=== PATIENT | male | born 1935 | race Caucasian/White ===

== ENCOUNTER → 2018-04-28 17:35 | Outpatient (CLI) | payer MEDICARE, OTHER, SELFPAY ==
[2018-04-28 18:59] LABS: M R Staph aureus DNA By PCR Negative (Negative); Probe Check PASS; Specimen Processing Control PASS; Staph aureus DNA By PCR NEGATIVE (Negative)
== END ==
PROVIDERS: Family Provider Internal Medicine; PCP Internal Medicine; Referring Provider Podiatrist; Visit Provider Podiatrist
DX: L60.0 Ingrowing nail (principal)
CPT/HCPCS: 87070; 87075; 87077; 87186; 87205; 87640

== ENCOUNTER → 2018-07-02 13:01 | Outpatient (CLI) | payer MEDICARE, OTHER, SELFPAY ==
--- NOTE | 2018-07-02 13:06 | RAD_ITS ---
STUDY: X-RAY - RIGHT HAND REASON FOR EXAM: Male, 83 years old. Pain TECHNIQUE: 3 view(s) of the hand. COMPARISON: None. FINDINGS: There is joint space narrowing of the radiocarpal articulation consistent with degenerative arthrosis. Normal distal radioulnar joint. There is diffuse demineralization of the carpal bones. Normal carpal articulations There is degenerative arthrosis of the carpometacarpal (CMC) articulation of the thumb. Normal second through fifth carpometacarpal joints. Normal metacarpi. Normal metacarpophalangeal joint of the thumb. Normal interphalangeal joint of the thumb. Normal proximal and distal phalanges of the thumb. Normal metacarpophalangeal joints of the second through fifth fingers. Normal proximal and distal interphalangeal joints of the second through fifth fingers. Normal phalanges of the second through fifth fingers. There is soft tissue swelling of the third, fourth and fifth digits. RAD/Hand Min 3 Views IMPRESSION: There are degenerative changes as described. There is NO acute fracture or malalignment. There is soft tissue swelling of the third, fourth and fifth digits. Electronically Signed: Donald Diaz MD at 7:50 EST , Service support ,
== END ==
PROVIDERS: Family Provider Internal Medicine; PCP Internal Medicine; Referring Provider Nurse Practitioner; Visit Provider Nurse Practitioner
DX: M79.641 Pain in right hand (principal)
CPT/HCPCS: 73130

== ENCOUNTER → 2018-07-21 09:59 | Outpatient (CLI) | payer MEDICARE, OTHER, SELFPAY ==
[2018-07-21 10:17] LABS: Hematocrit 42.7 % (40-54); Mean Corp Hgb Conc 32.8 g/gl (32-36); Mean Corpuscular Volume 97.5 fL (80-94); Mean Platelet Vol. 10.8 fl (6.2-12.0); Platelet Count 293 K/mm3 (150-450); RBC Distribution Width CV 14.5 % (11.6-14.6); RBC Distribution Width SD 52.1 fl (35.1-43.9); Red Blood Count 4.38 M/mm3 (4.6-6.2); White Blood Count 12.2 K/mm3 (4.4-11.0)
[2018-07-21 10:18] LABS: Scan Indicated on CBC? Y/N NO
== END ==
PROVIDERS: Family Provider Internal Medicine; PCP Internal Medicine; Referring Provider Internal Medicine; Visit Provider Internal Medicine
DX: D72.829 Elevated white blood cell count, unspecified (principal)
CPT/HCPCS: 85027

== ENCOUNTER → 2018-07-26 09:50 | Outpatient (CLI) | payer MEDICARE, OTHER, SELFPAY ==
[2018-01-11 09:14] VITALS: BMI 35.3
== END ==
PROVIDERS: Family Provider Internal Medicine; PCP Internal Medicine; Referring Provider Internal Medicine; Visit Provider Internal Medicine
DX: R19.7 Diarrhea, unspecified (principal)
CPT/HCPCS: 82274; 83630; 87177; 87209; 87493; 87506

== ENCOUNTER 2018-12-25 14:00 | Outpatient (RCR) | payer MEDICARE, OTHER, SELFPAY ==
--- NOTE | 2018-12-16 14:33 | HP.PTEVAL ---
Patient's Visit Information ANDERSON JOHNSON SR is a 83 year old M referred to Physical Therapy by Elvia Loaiza DO with a diagnosis of B knee OA. Date of Evaluation: 12/16/18 Physical Therapist: Paul Reynoso PT, ATC - Visit Plan Frequency: 1x/Week Duration: 2 Weeks Plan: Issue HEP for gym routine consisting of B LE and core strengthening - Subjective Findings: Pt reports he is here for an exercise routine for his legs. Pt reports he walks everyday and has no problems with that, but notes when he gets home and has to negotiate stairs, he is too weak to get up them. Pt reports he can go down stairs much easier than he can ascend them. Pt reports no knee pain this date, but notes he does have pain on occassions. Pt reports he receives a cortisone injection into his knees every 2-3 months which are very effective in controlling his pain. No sleep difficulty secondary to pain. No tingling or numbness in LE's. 0/10 pain at rest, 6/10 when injection wears off - Pain B knees Pain Intensity (Out of 10): 0 Pain Intensity Range: 6 - Objective Neuro: B LE sensation is WNL to light touch. B achilles reflex= 2/3. Girth at joint line: 44.5 cm Bilaterally. ROM: B knees 0-7-110 degrees. MMT: R knee is 4/5 throughout, L knee is 4+/5 throughout. Stairs: Pt can negotiate stairs with no problems with the use of handrails. Pt is Unable to negotiate stairs without handrails - Goals Goal 1:: I with HEP 1-2 visits Goal Time Frame: 2 Weeks - Rehabilitation Potential Physical Therapy Diagnosis: Pt has difficulty with stair negotiation due to B LE weakness Rehabilitation Potential: Good - Anticipated Interventions Patient/Client Instruction: Educate patient on: Condition, Plan of Care For the Purpose of:: To improve self management Thank you for the opportunity to evaluate your patient. For Medicare and Medicare HMO plans, please review the plan of care and approve it. It will need to be FAXED BACK to us at [phone] for Medicare purposes. For Medicare only, by signing this I certify the plan of care. Please let me know if there are questions or concerns regarding this plan of care. Physician Signature: Date:
--- NOTE | 2018-12-25 15:34 | HP.PTDCSUM ---
HP - PT D/C Summary It has been my pleasure to treat ANDERSON JOHNSON SR under orders from Elvia Loaiza DO, for the diagnosis of B knee OA for a total of 3 visit(s). Discharge Date: Please see the following information for a summary of their discharge status. - Subjective Subjective: NO pain this date. Pt ready for I program - Pain B knees Pain Intensity (Out of 10): 0 - Overall Improvement % Improvement: 100 - Objective Objective/Function: Pt is now I with gym routine at this time. Rx goals achieved - Goals Goal 1:: I with HEP 1-2 visits Goal Progress: Goal Met - Plan Plan: Discharge - D/C Information If there are questions or concerns regarding this patient's physical therapy, please feel free to call me at [phone]. Thank you for the referral of this patient. Sincerely, Paul Reynoso, PT, ATC
== END 2018-12-25 19:00 | disposition home or self-care (01) ==
LOC: PT 14:00
PROVIDERS: Family Provider Internal Medicine; PCP Internal Medicine; Referring Provider Orthopaedic Surgery; Visit Provider Orthopaedic Surgery
DX: M17.0 Bilateral primary osteoarthritis of knee (principal)
CPT/HCPCS: 97110; 97161

== ENCOUNTER 2020-03-01 12:45 | Emergency (ER) | payer MEDICARE, OTHER, SELFPAY ==
[2019-12-28 12:03] VITALS: BMI 36.6
[2020-03-01 12:46] VITALS: BP 152/86; PULSE 84; RESP 15; TEMP 36.7; O2SAT 94; BMI 35.2
--- NOTE | 2020-03-01 13:06 | VDLE_ITS ---
Reason For Study: pain Procedure LEFT Exam performed portable in ED. GSV is normal. The exam was abbreviated due to the COVID 19 CFV is compressible, spontaneous, phasic, protocol. competent, and demonstrates normal The exam was diagnostic. augmentation. A preliminary report was called and/or faxed FV is compressible, spontaneous, phasic, to Dr. Clemens. competent and demonstrates normal augmentation. POP V is compressible, spontaneous, phasic, competent and demonstrates normal augmentation. T/P Trunk is compressible. PTV is compressible. LT PerV is compressible. Interpretation Summary Deep veins of the left lower extremity are patent and compressible segmentally. There is no evidence of left lower extremity deep vein thrombosis. Valvular competence appears intact within the proximal deep venous system on the left . The left great saphenous vein appears patent and compressible segmentally. Ordering Physician: Damian Clemens Performed By: Jordy Eid RVT
--- NOTE | 2020-03-01 13:14 | ED.VISSUMM ---
- ER Visit Summary Date of Service: 03/01/20 Chief Complaint: Knee pain History of Present Illness: The patient is a 85 M with left knee and left calf pain for several days. No injury or inciting factors. Worse with weightbearing. Sent for possible DVT. No history of DVT. No history of chest pain or shortness of breath with this. Denies weakness, numbness, or any other associated symptoms. He does have osteoarthritis and does get knee injections from time to time. Physical Examination: Afebrile and vital signs unremarkable. Unremarkable knee inspection. No deformity. Good range of motion. No laxity. He does have some left calf tenderness without edema or skin changes. Neurovascular intact distally. Test Results: Ultrasound pending. Emergency Department Course and Treatment: Patient declined pain medicine while awaiting ultrasound results. Ultrasound was negative. I suspect this is myofascial pain. He has no history which would cause me to believe this is a fracture. Nothing to suggest gout or septic joint. Patient will be discharged. Rest, ice, elevate. Pain meds. Follow-up with Ortho. Treatment Plan: As above Disposition: Discharge Impression: Left knee pain This note was generated with [employer] dictation software. It may contain incorrect words, spelling, and punctuation that were not noted in review of the chart prior to signing ED Disposition - Plan for ED Patient: Referrals: Teresa Castellano DO [Primary Care Provider] -
--- NOTE | 2020-03-01 13:39 | ED.DEP ---
ED Disposition - Plan for ED Patient: Instructions: ED Knee Pain [facility] Referrals: Elvia Loaiza DO [STAFF PHYSICIAN] -
[2020-03-01 13:58] VITALS: BP 142/87; PULSE 87; RESP 15; O2SAT 98
== END 2020-03-01 13:59 | disposition home or self-care (01) ==
LOC: ED 13:38
PROVIDERS: Emergency Provider Emergency Medicine; PCP Internal Medicine
DX: M25.562 Pain in left knee (principal); M17.12 Unilateral primary osteoarthritis, left knee; I10 Essential (primary) hypertension; E78.00 Pure hypercholesterolemia, unspecified
CPT/HCPCS: 93971; 99282

== ENCOUNTER → 2020-03-03 13:13 | Outpatient (CLI) | payer MEDICARE, OTHER, SELFPAY ==
[2020-03-01 12:46] VITALS: BMI 35.2
--- NOTE | 2020-03-03 13:20 | RAD_ITS ---
STUDY: X-RAY - LUMBAR SPINE REASON FOR EXAM: Male, 85 years old. PAIN X1 WEEK, NKI TECHNIQUE: 5 view(s) of the lumbar spine were obtained. COMPARISON: 2015 FINDINGS: Normal lumbar lordosis. There is no substantial scoliosis. There is a normal alignment of the vertebrae. There is multilevel endplate spondylosis of the lumbar vertebrae. There is multi-level degenerative disc disease with multi-level disc space narrowing. There is no demonstrated fracture. There is atherosclerotic calcification of the abdominal aorta without a demonstrated aneurysm. RAD/L/S Spine Min 4 Views IMPRESSION: Degenerative changes of the spine, as detailed above. Electronically Signed: Stephen Foreman MD at 17:27 EDT , Service support ,
--- NOTE | 2020-03-03 13:20 | RAD_ITS ---
STUDY: X-RAY - LEFT KNEE REASON FOR EXAM: Male, 85 years old. PAIN X1 WEEK, NKI TECHNIQUE: 4 view(s) of the knee. COMPARISON: None. FINDINGS: Normal visualized distal femur. Normal visualized proximal tibia and fibula. Normal proximal tibiofibular articulation. There is severe degenerative arthrosis of the medial femorotibial compartment with severe joint space narrowing. There is mild degenerative arthrosis of the lateral femorotibial compartment. There is mild degenerative arthrosis of the patellofemoral articulation. The soft tissue structures are unremarkable. RAD/Knee 4 or More Views IMPRESSION: Degenerative arthrosis. Electronically Signed: Stephen Foreman MD at 17:28 EDT , Service support ,
== END ==
PROVIDERS: PCP Internal Medicine; Referring Provider Physician Assistant; Visit Provider Physician Assistant
DX: M17.12 Unilateral primary osteoarthritis, left knee (principal)
CPT/HCPCS: 72110; 73564

== ENCOUNTER → 2020-05-05 | Outpatient (CLI) | payer MEDICARE, OTHER, SELFPAY ==
[2020-05-05 10:41] VITALS: BMI 35.2
--- NOTE | 2020-05-05 15:09 | VDLE_ITS ---
Reason For Study: swelling RIGHT GSV is normal. CFV is compressible, spontaneous, phasic, competent and demonstrates normal augmentation. FV is compressible, spontaneous, phasic, competent and demonstrates normal augmentation. POP V is compressible, spontaneous, phasic, competent and demonstrates normal augmentation. T/P Trunk is compressible. PTV is compressible. RT PerV is compressible. Procedure This is a venous duplex using B-mode, color flow and spectral Doppler. Exam performed in department. The exam was abbreviated due to the COVID 19 protocol. The exam was diagnostic. A preliminary report was called and/or faxed to Dr. Loaiza. Interpretation Summary There is no evidence of right lower extremity deep vein thrombosis. Right great saphenous vein appears patent and compressible segmentally. Abbreviated Covid-19 protocol Ordering Physician: Elvia Loaiza Performed By: Jordy Eid RVT
--- NOTE | 2020-05-05 15:09 | CT_ITS ---
STUDY: CT LOWER EXTREMITY WITHOUT CONTRAST: RIGHT REASON FOR EXAM: Male, 85 years old. FALL, INJURY RADIATION DOSAGE (If Supplied By Facility): CTDIvol = ( 8.57 ) mGy, DLP = ( 234.16 ) mGycm. Individualized dose optimization techniques were used for this CT.? TECHNIQUE: Transaxial imaging with sagittal and coronal reconstruction. COMPARISON: Right knee radiographs of 05/04/2020 FINDINGS: Acute fracture of the posterior tibial plateau occurring posterior to the intercondylar eminence and grazing the articular surface of the medial and lateral tibial plateaus causing a fracture fragment that is 2.3 cm left to right, 1.4 cm anterior to posterior and is 7 mm in height. There is minimal depression and posterior displacement. Hemarthrosis is present. Negative for fracture of the fibula, patella or femur. There is moderate degenerative arthrosis of the medial, lateral and patellofemoral compartments. Arterial calcifications. CT/Extremity Lower without Contra IMPRESSION: Acute fracture of the posterior tibial plateau occurring posterior to the intercondylar eminence and grazing the articular surface of the medial and lateral tibial plateaus with minimal depression and posterior displacement. Hemarthrosis present. Moderate degenerative arthrosis of the knee. Electronically Signed: Faith Mehta MD at 16:03 EDT , Service support ,
== END | disposition home or self-care (01) ==
LOC: CVS 15:09
PROVIDERS: PCP Internal Medicine; Referring Provider Orthopaedic Surgery; Visit Provider Orthopaedic Surgery
DX: M79.89 Other specified soft tissue disorders (principal); S89.91XA Unspecified injury of right lower leg, initial encounter
CPT/HCPCS: 73700; 93971

== ENCOUNTER 2020-06-23 10:55 | Inpatient (IN) | payer MEDICARE, OTHER, SELFPAY ==
[2020-05-05 10:41] VITALS: BMI 35.2
[2020-06-23] VITALS (10 sets, daily range): BP systolic 108–126; BP diastolic 79–92; PULSE 79–144; RESP 15–20; TEMP 36.4–36.8; O2SAT 84–96; BMI 35.2; BMI 33.1
[2020-06-23] MEDS: 0.9% Normal Saline 1,000 ML 125 ML IV ×3 (11:00→20:51)
--- NOTE | 2020-06-23 11:00 | RAD_ITS ---
STUDY: X-RAY CHEST REASON FOR EXAM: Male, 85 years old. Shortness of breath with productive cough. COVID positive. TECHNIQUE: Single frontal view of the chest. COMPARISON: None. FINDINGS: Low-volume inspiration with patchy opacities in both lungs, right slightly greater than left. Peripheral opacities are compatible with the given diagnosis of COVID. There is no demonstrated pleural abnormality. Cardiomegaly. Normal mediastinum and al. Normal visualized pulmonary arteries. Aortic tortuosity with calcification. Normal visualized thoracic spine. Normal visualized ribs, clavicles, and shoulders. There is no demonstrated abnormality of the visualized soft tissue structures of the upper abdomen. RAD/Chest 1 View (Portable) IMPRESSION: Cardiomegaly with patchy peripheral opacities in both lung odom compatible with the given diagnosis of COVID. No focal consolidation at this time. Electronically Signed: Russel Mckeon MD at 11:36 EST , Service support ,
[2020-06-23 11:19] LABS: Absolute Lymphocyte Count 1.58 X10^3/uL (0.83-4.51); Absolute Neutrophil Count 8.1 X10^3/uL (2.0-7.7); Basophil# 0.02 X10^3/uL; Basophil% 0.2 % (0-1); Eosinophil# 0.06 X10^3/uL; Eosinophils% 0.6 % (0-5); Hematocrit 41.1 % (40-54); Hemoglobin 13.1 g/dL (13.0-16.5); Lymphocyte # 1.58 X10^3/ul (4.0); Lymphocyte % 15.1 % (19-41); Mean Corp Hgb Conc 31.9 g/dL (32-36); Mean Corpuscular Hgb 26.6 pg (27.0-32.0); Mean Corpuscular Volume 83.5 fL (80-94); Mean Platelet Vol. 11.1 fl (6.2-12.0); Monocyte# 0.48 X10^3/uL; Monocyte% 4.6 % (0-10); NRBC Flagged by Analyzer 0 % (0-5); Neutrophil % 77.7 % (47-70); POSITIVE MORPHOLOGY YES; Platelet Count 353 K/mm3 (150-450); RBC Distribution Width CV 17.1 % (11.6-14.6); RBC Distribution Width SD 52.1 fl (35.1-43.9); Red Blood Count 4.92 M/mm3 (4.6-6.2); White Blood Count 10.4 K/mm3 (4.4-11.0)
[2020-06-23 11:22] LABS: Differential Indicated SCAN CRITERIA MET
--- NOTE | 2020-06-23 11:28 | EKG12_ITS ---
Test Reason : TACHY Blood Pressure : / mmHG Vent. Rate : 141 BPM Atrial Rate : 141 BPM P-R Int : 082 ms QRS Dur : 120 ms QT Int : 326 ms P-R-T Axes : 244 -48 055 degrees QTc Int : 499 ms Ectopic atrial tachycardia Left axis deviation Pulmonary disease pattern Left ventricular hypertrophy with QRS widening and repolarization abnormality Abnormal ECG Confirmed by GT STEWARD, MAO ([id number]), editorial assistant DORA VALDOVINOS ([id number]) on 06/24/2020 11:13:28 AM Referred By: MR Confirmed By:MAO DEL REAL MD
[2020-06-23 11:38] LABS: ALB/GLOB Ratio 0.5 RATIO (0.9-2.4); AST(SGOT) 32 U/L (15-37); Alanine Aminotransfer ALT/SGPT 24 U/L (16-61); Albumin, Serum 2.3 g/dL (3.2-5.0); Alkaline Phosphatase 76 U/L (45-117); Anion Gap 10 (5-15); BUN 37 mg/dL (7-18); BUN/Creat Ratio 36.6 RATIO (10-20); CPK Total, Creatine Kinase 37 U/L (39-308); Calcium,Total 8.6 mg/dL (8.5-10.1); Chloride 98 mmol/L (98-107); Creatinine, Serum 1.01 mg/dL (0.70-1.30); EST Glomerular Filtration Rate 75 mL/min (>60); Est Glom Filt Rate - Afr Amer 90 mL/min (>60); Estimated Creatinine Clearance 49.13 ml/min; Glucose 85 mg/dL (74-106); Potassium 2.8 mmol/L (3.5-5.1); Protein, Total 7.3 g/dL (6.4-8.2); Sodium Level 137 mmol/L (136-145)
[2020-06-23 11:41] LABS: Lactic Acid 1.7 mmol/L (0.4-1.9)
--- NOTE | 2020-06-23 11:45 | ED.DCSUM_ITS ---
History of Present Illness Chief Complaint: Shortness of Breath Narrative: Patient presenting for evaluation due to complications of coronavirus. Patient has a underlying history of a positive diagnosis, and has had symptoms for around 2 weeks. Patient states that he has generalized aches, fatigue, cough, shortness of breath, and loose stools. EMS was dispatched to the patient's house and he was noted to be hypoxic on room air. Patient denies that he has any underlying history of lung disease or any baseline oxygen requirement. Symptoms are moderate to severe and are not relieved by home remedies. Past Medical History - Allergies and Home Meds Allergies/Adverse Reactions: Allergies codeine Allergy (Verified 06/23/20 11:01) NEEDS FOLLOW-UP Primary Care Physician: Teresa Castellano DO [Primary Care Provider] - Prior records reviewed: Yes Past Medical History: - - Hypertension, BPH, arthritis Smoking Status: Former smoker Drugs: None Review of Systems All systems negative except as indicated General: Reports: Fever, Malaise Eyes: Denies: Visual changes - bilaterally, Diplopia ENT: Denies: Rhinorrhea, Sore throat Cardiovascular: Denies: Chest pain, Palpitations Respiratory: Reports: Dyspnea, Cough Gastrointestinal: Reports: Diarrhea Genitourinary: Denies: Dysuria, Hematuria, Frequency Musculoskeletal: Reports: Myalgias Skin: Denies: Rash, Wounds Neurological: Reports: Headache, Weakness Physical Exam Vital Signs/Narrative: Vital Signs Temp Pulse Resp BP Pulse Ox 06/23/20 11:26 139 H 18 108/79 94 06/23/20 11:02 86 19 H 120/83 H 95 06/23/20 10:56 97.5 F L 87 17 126/92 H 84 Inital Vital Signs reviewed: Yes General: Well nourished, Well developed, - - Mildly ill-appearing but otherwise not in physiologic distress Head: Normocephalic, Atraumatic Eyes: Perrl, EOMI ENT: Dry mucous membranes Neck: Supple, Nontender Cardiovascular: Regular rate, Regular rhythm Respiratory: No distress Abdomen: Soft, Nontender, Nondistended, Normal bowel sounds Extremities: Nontender, No edema Skin: Normal color, No rash Neurological: Alert, Oriented x3, Cranial nerves II-XII grossly intact, Normal Strength, Normal Sensation Psychological: Normal affect, Normal Mood Diagnostic/Tx/Re-eval Clinical Impression(s) from Imaging Studies Chest X-Ray 06/23/20 11:00 IMPRESSION: Cardiomegaly with patchy peripheral opacities in both lung odom compatible with the given diagnosis of COVID. No focal consolidation at this time. Electronically Signed: Russel Mckeon MD at 11:36 EST , Service support , Laboratory Data 06/23/20 06/23/20 06/23/20 11:00 11:00 11:00 WBC 10.4 RBC 4.92 Hgb 13.1 Hct 41.1 MCV 83.5 MCH 26.6 L MCHC 31.9 L RDW Std Deviation 52.1 H RDW Coeff of Hazel 17.1 H Plt Count 353 MPV 11.1 Immature Gran % (Auto) 1.800 H Neut % (Auto) 77.7 H Lymph % (Auto) 15.1 L Mcculloch % (Auto) 4.6 Eos % (Auto) 0.6 Baso % (Auto) 0.2 Absolute Neuts (auto) 8.1 H Absolute Lymphs (auto) 1.58 Nucleated RBC % 0 Differential Comment SCANNED Sodium 137 Potassium 2.8 L Chloride 98 Carbon Dioxide 29.0 Anion Gap 10 BUN 37 H Creatinine 1.01 Estim Creat Clear Calc 49.13 Est GFR (MDRD) Af Amer 90 Est GFR (MDRD) Non-Af 75 BUN/Creatinine Ratio 36.6 H Glucose 85 Lactic Acid 1.7 Calcium 8.6 Total Bilirubin 0.50 AST 32 ALT 24 Alkaline Phosphatase 76 Total Creatine Kinase 37 L Troponin I < 0.015 Total Protein 7.3 Albumin 2.3 L Globulin 5.0 H Albumin/Globulin Ratio 0.5 L - EKG Initial EKG Interpretation: - - Sinus tachycardia with a rate of 141, left axis deviation is noted with pulmonary disease pattern, isoelectric ST segments, normal T waves, no evidence of acute ischemia. - Medical Decision Making Patient presented with complications of coronavirus. He was noted to be hypoxic on room air, he was placed on supplemental oxygen upon arrival. Septic work-up was obtained, upon the patient's initial arrival he was actually not tachycardic and had a heart rate in the 80s and 90s but during his stay in the emergency department he developed tachycardia. An EKG demonstrated what I feel to be a sinus tachycardia. He was started on gentle fluid resuscitation as clinically he appears dry but he has coronavirus and judicious fluids are typically recommended. Chest x-ray shows bilateral infiltrates consistent with the patient's known disease. CBC does not show significant derangements, chemistry shows hypokalemia, potassium was replaced. Lactic acid and troponin are negative. Patient was given Decadron. Patient will be admitted for further treatment. - Critical Care Time Critical care time (excluding procedures): 30-74 minutes ED Disposition - Plan for ED Patient: Disposition: Acute Care Hospital [facility] Diagnosis: COVID-19, Hypoxia, Hypokalemia, Tachycardia
[2020-06-23 11:48] LABS: Differential Comment SCANNED
[2020-06-23] MEDS: dexAMETHasone 4 MG/ML Vial 6 MG IV (12:03)
[2020-06-23] MEDS: Potassium Chloride 10mEq/100mL 10 MEQ/100 ML IV.SOLN. 100 MEQ IV BOLUS ×2 (12:04→13:39)
--- NOTE | 2020-06-23 12:04 | PCM.HP.STD ---
Problem List (1) COVID-19 Status: Acute (2) Hypoxia Status: Acute (3) Hypokalemia Status: Acute (4) Hypertension Status: Chronic Qualifiers: Hypertension type: essential hypertension Qualified Code(s): I10 - Essential (primary) hypertension History of Present Illness Date of Admission: 06/23/20 Chief Complaint: Shortness of breath ongoing for couple of days The patient is a 85 year old M with past medical history of hypertension, osteoarthritis who comes in with shortness of breath ongoing for couple of days. Patient was diagnosed with COVID-19 infection and has symptoms of generalized aches, fatigue, cough, shortness of breath ongoing for about 2 weeks. He has a pulse oximeter. He noted that his oxygen saturation the last 2 days was in the 70s. This morning his convinced him to come to the hospital. He denied any fever or chills. He come planes of cough productive of whitish sputum. Vitals in the ED showed temperature 97.5F, heart rate 70, blood pressure 126/92, RR 17, SPO2 was 84% on room air, improved to 95% on 2 L of oxygen. BC count 10.4, hemoglobin 13.1, platelet 353, sodium 137, potassium 2.8, chloride 98, bicarbonate 29, BUN 37, creatinine 1.01, lactic acid 1.7, magnesium 2.3, BNP pep is pending, D-dimer is pending. Admitting chest x-ray showed cardiomegaly with peripheral patchy opacity in both lung odom. 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 Allergies codeine Allergy (Verified 06/23/20 11:01) NEEDS FOLLOW-UP Home Medications: Ambulatory Orders Medication Instructions Recorded amlodipine 5 mg tablet 5 mg PO QDAY 07/25/17 atenolol 25 mg tablet 25 mg PO ONCE 07/25/17 saw palmetto 160 mg capsule 160 mg PO BID 07/25/17 coenzyme Q10 30 mg capsule 30 mg PO QDAY 01/11/18 pantoprazole 40 mg tablet,delayed 40 mg PO QDAY 01/11/18 release Cholecalciferol (Vitamin D3) 2,000 unit PO DAILY 02/05/19 [Vitamin D3] Hydrochlorothiazide [Hctz] 25 mg PO DAILY 02/05/19 Lisinopril [Zestril] 10 mg PO DAILY 02/05/19 Atorvastatin Calcium [Lipitor] 10 mg PO QHS 02/09/19 Ibuprofen [Advil] 200 mg PO PRN PRN 03/17/20 meloxicam 15 mg tablet 15 mg PO DAILY #30 tab 04/18/20 Surgical History: Surgical History (Last Reviewed 03/17/20 @ 14:30 by Per Nur) History of hernia surgery Z98.890, Z87.19 S/P hernia repair Z98.890, Z87.19 Surgical History: herniorrhaphy Psychiatric History: No pertinent psych hx Lives: Spouse/ Significant Other Smoking Status: Former smoker Tobacco Use: Non-smoker Alcohol: None Drugs: None - *Family History Maternal Family History: Family History (Last Reviewed 03/17/20 @ 14:30 by Per Nur) Mother Myocardial infarction Father Myocardial infarction CVA (cerebral vascular accident) Other Arthritis History Items: Heart Disease - [place] Paternal Family History: Family History (Last Reviewed 03/17/20 @ 14:30 by Per Nur) Mother Myocardial infarction Father Myocardial infarction CVA (cerebral vascular accident) Other Arthritis History Items: Heart Disease - [place], Stroke Review of Systems Constitutional: Reports: Anorexia, Weakness, Fatigue. Denies: Chills, Fever, Malaise, Weight Change Eyes: Denies: Blurred vision, Cataracts, Conjunctivae Inflammation, Pain, Redness, Vision Change HEENT: Denies: Difficulty Hearing, Difficulty Swallowing, Head Aches, Hearing Changes, Sinus Congestion, Sinus Drainage Cardiovascular: Denies: Chest Pain, Claudication, Orthopnea, Palpitations Respiratory: Reports: Cough, Shortness of Breath, Shortness of breath at rest, Shortness of breath upon exertion. Denies: Sputum production Gastrointestinal: Denies: Abdominal Pain, Hematemesis, Hematochezia, Nausea, Vomiting Genitourinary: Denies: Dysuria, Incontinence, Nocturia, Retention Musculoskeletal: Denies: Joint Pain, Joint Tenderness Skin: Denies: Rash, Wounds Neurological: Denies: Numbness, Tingling, Focal weakness Psychiatric: Denies: Anxiety, Depression, Homicidal Ideations, Suicidal Ideations Hematologic/ Lymphatic: Denies: Easy Bruising, Easy Bleeding VTE Information - Inpt Only VTE Present on Admission: No VTE Pharm Prophylaxis ordered?: Yes Patient Problems: Active and Suspected Problems (Last Reviewed 03/17/20 @ 14:30 by Per Nur) COVID-19 (Acute) Hypoxia (Acute) Hypokalemia (Acute) Tachycardia (Acute) - Physical Exam Vitals/I&O's: Vital Signs Temp Pulse Resp BP Pulse Ox 97.9 F 144 H 15 108/86 H 92 06/23/20 12:01 06/23/20 12:01 06/23/20 12:01 06/23/20 12:01 06/23/20 12:01 Oxygen Flow Rate (L/min) 2 Oxygen Delivery Method Nasal Cannula Weight: 98.8 kg Body Mass Index (BMI) 35.2 General: Alert, Oriented x3, Cooperative, No apparent distress HEENT: Atraumatic, PERRLA, EOMI, Normocephalic Oral: Moist Mucosa Neck: Supple, No JVD Lungs: Clear to auscultation, Diminished Cardiovascular: Regular rate, Regular Rhythm, Normal S1, Normal S2, No murmurs Abdomen: Bowel Sounds Present, Soft, Non Tender, Non-Distended, No Hepato-splenomegaly Extremities: No edema Skin: No rashes Musculoskeletal: No Tenderness to Palpation of Joints or Extremities Lymphatic: No Cervical, Supraclavicular, or Inguinal Adenopathy Neurological: Cranial nerves II-XII grossly intact, Motor Exam 5/5 strength throughout Psych/Mental Status: Normal Affect, Appropriate Laboratory Results 06/23/20 11:00: WBC 10.4, RBC 4.92, Hgb 13.1, Hct 41.1, MCV 83.5, MCH 26.6 L, MCHC 31.9 L, RDW Std Deviation 52.1 H, RDW Coeff of Hazel 17.1 H, Plt Count 353, MPV 11.1, Immature Gran % (Auto) 1.800 H, Neut % (Auto) 77.7 H, Lymph % (Auto) 15.1 L, Campbell % (Auto) 4.6, Eos % (Auto) 0.6, Baso % (Auto) 0.2, Absolute Neuts (auto) 8.1 H, Absolute Lymphs (auto) 1.58, Nucleated RBC % 0, Differential Comment SCANNED 06/23/20 11:00: Sodium 137, Potassium 2.8 L, Chloride 98, Carbon Dioxide 29.0, Anion Gap 10, BUN 37 H, Creatinine 1.01, Estim Creat Clear Calc 49.13, Est GFR (MDRD) Af Amer 90, Est GFR (MDRD) Non-Af 75, BUN/Creatinine Ratio 36.6 H, Glucose 85, Calcium 8.6, Total Bilirubin 0.50, AST 32, ALT 24, Alkaline Phosphatase 76, Total Creatine Kinase 37 L, Troponin I < 0.015, Total Protein 7.3, Albumin 2.3 L, Globulin 5.0 H, Albumin/Globulin Ratio 0.5 L 06/23/20 11:00: Lactic Acid 1.7 06/23/20 11:00: Procalcitonin Pending 06/23/20 11:00: Magnesium Pending Current Medications Sodium Chloride () 1,000 mls @ 125 mls/hr IV .Q8H IVELISSE Potassium Chloride () 10 meq in 100 mls @ 100 mls/hr IV BOLUS Q1H IVELISSE Stop: 06/23/20 13:59 Assessment/Plan All Active Problems (Last Reviewed 03/17/20 @ 14:30 by Per Nur) Easy bruising (Acute) Iron deficiency (Resolved) Rash (Acute) Ecchymosis (Acute) COVID-19 (Acute) Hypoxia (Acute) Hypokalemia (Acute) Tachycardia (Acute) Osteoarthrosis of knee (Acute) 1. Acute hypoxic respiratory insufficiency secondary to acute COVID-19 pneumonia Continue with breathing treatments, po steroids, encourage use of incentive spirometer. Wean off oxygen for SPO2 more than 94% 2. Acute COVID-19 pneumonia hypoxia Diagnosed 2 weeks ago, started having shortness of breath 2 days ago Started on IV dexamethasone, will continue on oral dexamethasone and IV remdesivir BN pep and D-dimer are pending ID and pulmonary consulted 3. Dehydration and tachycardia Admitting creatinine is 1.01, baseline creatinine 0.8 We will continue on IV fluids, repeat blood work in a.m. 4. Hypertension, home med list has not been verified We will continue on home meds when verified 5. Arthritis, not in pain at the moment 6. DVT prophylaxis with Lovenox subcu Inpatient E&M: [id number] Init Hosp L3
[2020-06-23 12:10] LABS: Magnesium 2.3 mg/dL (1.6-2.6)
[2020-06-23 13:39] LABS: D-Dimer Quantitative (DVT/PE) 1.12 FEU/ug/m (0.27-0.49)
--- NOTE | 2020-06-23 15:33 | NT.THERAPY_ITS ---
Nutrition Therapy Report - History Nutrition Services has been consulted to:: Manage nutrient details of diet order Current diet / nutrition support order:: regular - Anthropometric Measurements Height:: 5 ft 6.14 in Weight:: 93.5 kg Body Mass Index (BMI):: 33.1 - Relevant Labs Relevant Labs:: MCH 26.6 pg (27.0-32.0) L 06/23/20 11:00 MCHC 31.9 g/dL (32-36) L 06/23/20 11:00 RDW Std Deviation 52.1 fl (35.1-43.9) H 06/23/20 11:00 RDW Coeff of Hazel 17.1 % (11.6-14.6) H 06/23/20 11:00 Immature Gran % (Auto) 1.800 % (0.0-0.9) H 06/23/20 11:00 Neut % (Auto) 77.7 % (47-70) H 06/23/20 11:00 Lymph % (Auto) 15.1 % (19-41) L 06/23/20 11:00 Absolute Neuts (auto) 8.1 X10^3/uL (2.0-7.7) H 06/23/20 11:00 D-Dimer Quant (PE/DVT) 1.12 FEU/ug/m (0.27-0.49) H* 06/23/20 11:00 Potassium 2.8 mmol/L (3.5-5.1) L 06/23/20 11:00 BUN 37 mg/dL (7-18) H 06/23/20 11:00 BUN/Creatinine Ratio 36.6 RATIO (10-20) H 06/23/20 11:00 Total Creatine Kinase 37 U/L (39-308) L 06/23/20 11:00 Albumin 2.3 g/dL (3.2-5.0) L 06/23/20 11:00 Globulin 5.0 g/dL (2.2-4.2) H 06/23/20 11:00 Albumin/Globulin Ratio 0.5 RATIO (0.9-2.4) L 06/23/20 11:00 - Assessment Food / Nutrition-Related History:: Currently in isolation d/t COVID-19. Spoke w/ pt via room phone. Pt reports no appetite w/ very poor PO intake for 2 weeks [employer] d/t acute illness. Describes fair appetite/intake currently. UBW 225#, CBW 20 6.1#-18.9#/8.4% wt loss x 2 weeks is significant for acute malnutrition. States he has had intermittent diarrhea w/ acute illness. - Nutrition Diagnosis Problem / Etiology / Signs & Symptoms (PES):: Pt w/ severe, acute malnutrition r/t inadequate energy intake w/ COVID-19 infection as evidenced by estimated PO intake meeting less than 50% of pt's estimated needs for greater than 5 days, 18.9#/8.4% wt loss reported over past 2 weeks. Evidence of Malnutrition Exists:: Yes Severe PCM:: Acute Illness - Nutrition Intervention Nutrition Prescription:: 3530-4855 calories, 80-90 g protein/day - Food / Nutrient Delivery Interventions Summary of nutrition intervention:: Discussed ONS- agreeable to trying chocolate ensure at dinner this date. Dinner order taken for pt and called to kitchen. Nutrition support ordered as / adjusted to:: continue regular diet as tolerated, will add ensure w/ meals - MNT Monitoring Further MNT monitoring and evaluation required?: Yes MNT Follow-up in:: 3-5 days
[2020-06-23] MEDS: Atenolol 25 MG Tablet PO (15:46)
[2020-06-23] MEDS: guaiFENesin 600 MG Tablet PO (20:51)
[2020-06-23] MEDS: Enoxaparin 30 MG/0.3 ML Syringe SC (20:51)
[2020-06-24] VITALS (17 sets, daily range): BP systolic 119–157; BP diastolic 70–105; PULSE 62–102; RESP 18–20; TEMP 36.1–37.1; O2SAT 92–95
[2020-06-24] MEDS: 0.9% Saline Lock 10 ML Syringe IV ×2 (00:42→21:01)
[2020-06-24] MEDS: LORazepam 2 MG/ML Syringe 1 MG IV (00:42)
[2020-06-24] MEDS: 0.9% Normal Saline 1,000 ML 125 ML IV ×2 (04:06→12:00)
--- NOTE | 2020-06-24 07:04 | PN_ITS ---
Patient Problems: Active and Suspected Problems (Last Reviewed 03/17/20 @ 14:30 by Per Nur) Easy bruising (Acute) Ecchymosis (Acute) COVID-19 (Acute) Hypoxia (Acute) Hypokalemia (Acute) Tachycardia (Acute) Osteoarthrosis of knee (Acute) Reason for Visit: Follow-up on hypoxia/Acute COVID-19 pneumonia Subjective: Patient was seen and examined. He complains of feeling anxious. No acute events overnight. Objective: Physical exam: General: Alert, Oriented x3, Cooperative, No apparent distress HEENT: Atraumatic, PERRLA, EOMI, Normocephalic Oral: Moist Mucosa Neck: Supple, No JVD Lungs: Clear to auscultation, Diminished Cardiovascular: Regular rate, Regular Rhythm, Normal S1, Normal S2, No murmurs Abdomen: Bowel Sounds Present, Soft, Non Tender, Non-Distended, No Hepato- splenomegaly Extremities: No edema Skin: No rashes Musculoskeletal: No Tenderness to Palpation of Joints or Extremities Lymphatic: No Cervical, Supraclavicular, or Inguinal Adenopathy Neurological: Cranial nerves II-XII grossly intact, Motor Exam 5/5 strength throughout Psych/Mental Status: Normal Affect, Appropriate Vitals/I&O's: Vital Signs Temp Pulse Resp BP Pulse Ox 98.6 F 81 18 138/105 H 93 06/24/20 03:59 06/24/20 04:13 06/24/20 03:59 06/24/20 03:59 06/24/20 03:59 Oxygen Flow Rate (L/min) 2 Oxygen Delivery Method Nasal Cannula Weight: 96.3 kg Body Mass Index (BMI) 33.1 Intake and Output for Last 24 Hours 06/22/20 06/23/20 06/24/20 23:59 23:59 23:59 Intake Total 1920.25 / 2161.25 1246.25 / 1246.25 Balance 192.25 / 216.25 1246.25 / 1246.25 Microbiology Past 72 Hours 06/23/20 15:35 Mucosa - Nasopharyngeal Respiratory Panel (PCR) - Final Laboratory Results 06/23/20 11:00: WBC 10.4, RBC 4.92, Hgb 13.1, Hct 41.1, MCV 83.5, MCH 26.6 L, MCHC 31.9 L, RDW Std Deviation 52.1 H, RDW Coeff of Hazel 17.1 H, Plt Count 353, MPV 11.1, Immature Gran % (Auto) 1.800 H, Neut % (Auto) 77.7 H, Lymph % (Auto) 15.1 L, [place] % (Auto) 4.6, Eos % (Auto) 0.6, Baso % (Auto) 0.2, Absolute Neuts (auto) 8.1 H, Absolute Lymphs (auto) 1.58, Nucleated RBC % 0, Differential Comment SCANNED 06/23/20 11:00: Sodium 137, Potassium 2.8 L, Chloride 98, Carbon Dioxide 29.0, Anion Gap 10, BUN 37 H, Creatinine 1.01, Estim Creat Clear Calc 49.13, Est GFR (MDRD) Af Amer 90, Est GFR (MDRD) Non-Af 75, BUN/Creatinine Ratio 36.6 H, Glucose 85, Calcium 8.6, Total Bilirubin 0.50, AST 32, ALT 24, Alkaline Phosphatase 76, Total Creatine Kinase 37 L, Troponin I < 0.015, Total Protein 7.3, Albumin 2.3 L, Globulin 5.0 H, Albumin/Globulin Ratio 0.5 L 06/23/20 11:00: Lactic Acid 1.7 06/23/20 11:00: Procalcitonin Pending 06/23/20 11:00: Magnesium 2.3 06/23/20 11:00: D-Dimer Quant (PE/DVT) 1.12 H* 06/23/20 13:29: Lactic Acid Cancelled 06/23/20 13:29: B-Natriuretic Peptide Pending Current Medications Acetaminophen (Acetaminophen 325 Mg Tablet) 650 mg PO Q6H PRN PRN PRN Reason: Pain Score 1-10/Temp > 100.7 F Albuterol Sulfate (Albuterol 2.5 Mg/3 Ml Vial.Neb.) 2.5 mg INHALATION Q2H PRN PRN PRN Reason: SOB/Wheezing Atenolol (Atenolol 25 Mg Tablet) 25 mg PO DAILY COUNTS INCLUDE 234 BEDS AT THE [facility] Last Admin: 06/23/20 15:46 Dose: 25 mg Documented by: Dexamethasone (Dexamethasone 2 Mg Tablet) 6 mg PO DAILY COUNTS INCLUDE 234 BEDS AT THE [facility] Enoxaparin Sodium (Enoxaparin 30 Mg/0.3 Ml Syringe) 30 mg SC BID COUNTS INCLUDE 234 BEDS AT THE [facility] Last Admin: 06/23/20 20:51 Dose: 30 mg Documented by: Guaifenesin (Guaifenesin 600 Mg Tablet) 600 mg PO BID COUNTS INCLUDE 234 BEDS AT THE [facility] Last Admin: 06/23/20 20:51 Dose: 600 mg Documented by: Sodium Chloride () 1,000 mls @ 125 mls/hr IV .Q8H COUNTS INCLUDE 234 BEDS AT THE [facility] Last Admin: 06/24/20 04:06 Dose: 125 mls/hr Documented by: Sodium Chloride () 250 mls @ 15 mls/hr IV .[id number] PRN PRN Reason: Saline Flush Sodium Chloride () 250 mls @ 15 mls/hr IV .[id number] PRN PRN Reason: Additional IVPB Infusion Remdesivir 100 mg/ Sodium (Chloride) 250 mls @ 125 mls/hr IV DAILY COUNTS INCLUDE 234 BEDS AT THE [facility] Stop: 06/27/20 11:59 Ondansetron HCl (Ondansetron 4 Mg/2 Ml Vial) 4 mg IV Q8H PRN PRN PRN Reason: NAUSEA/VOMITING Psyllium Hydrophilic Mucilloid (Psyllium 1 Packet) 1 packet PO DAILY PRN PRN PRN Reason: Constipation Senna/Docusate Sodium (Senna/Docusate Sodium 1 Tablet) 2 tablet PO BID PRN PRN PRN Reason: Constipation Sodium Chloride (0.9% Saline Lock 10 Ml Syringe) 10 - 40 ml IV UD PRN PRN Reason: SALINE FLUSH Last Admin: 06/24/20 00:42 Dose: 10 ml Documented by: STROKE Vital Signs/Narrative: Vital Signs Temp Pulse Resp BP Pulse Ox 06/24/20 04:13 81 06/24/20 03:59 98.6 F 88 18 138/105 H 93 Medical Necessity - Tobacco Use Smoking Status: Former smoker Tobacco Use: Non-smoker Assessment/Plan All Active Problems (Last Reviewed 03/17/20 @ 14:30 by Per Nur) Easy bruising (Acute) Iron deficiency (Resolved) Rash (Acute) Ecchymosis (Acute) COVID-19 (Acute) Hypoxia (Acute) Hypokalemia (Acute) Tachycardia (Acute) Osteoarthrosis of knee (Acute) 1. Acute hypoxic respiratory insufficiency secondary to acute COVID-19 pneumonia Continue with breathing treatments, po steroids, encourage use of incentive spirometer. Wean off oxygen for SPO2 more than 94% 2. Acute COVID-19 pneumonia hypoxia Diagnosed 2 weeks ago, started having shortness of breath 2 days ago Continue on oral dexamethasone and IV remdesivir ID and pulmonary following 3. MATEUS, renal secondary to dehydration. Patient's admitting creatinine was 1.01, creatinine today 0.77 We will continue to encourage p.o. intake p.o. 4. Hypokalemia, present on admission, potassium improved from 2.8 to 3.3, will replace, recheck in a.m. 5. Hypertension, home med list has not been verified We will continue on home meds when verified 6. Arthritis, not in pain at the moment 7. DVT prophylaxis with Lovenox subcu Inpatient E&M: 47186 Subs Hosp L2
[2020-06-24 08:00] LABS: Absolute Lymphocyte Count 1.28 X10^3/uL (0.83-4.51); Basophil# 0.05 X10^3/uL; Basophil% 0.4 % (0-1); Hematocrit 39.4 % (40-54); Hemoglobin 12.2 g/dL (13.0-16.5); Lymphocyte # 1.28 X10^3/ul (4.0); Lymphocyte % 11.4 % (19-41); Mean Corpuscular Hgb 26.2 pg (27.0-32.0); Mean Corpuscular Volume 84.5 fL (80-94); Mean Platelet Vol. 11.3 fl (6.2-12.0); Monocyte# 0.63 X10^3/uL; Monocyte% 5.6 % (0-10); NRBC Flagged by Analyzer 0 % (0-5); Neutrophil # 9.02 X10^3/uL (2.7-7.7); Neutrophil % 80.4 % (47-70); POSITIVE MORPHOLOGY YES; Platelet Count 375 K/mm3 (150-450); RBC Distribution Width CV 17.2 % (11.6-14.6); RBC Distribution Width SD 52.7 fl (35.1-43.9); Red Blood Count 4.66 M/mm3 (4.6-6.2); White Blood Count 11.2 K/mm3 (4.4-11.0)
[2020-06-24 08:02] LABS: Differential Indicated SCAN CRITERIA MET
[2020-06-24 08:14] LABS: ALB/GLOB Ratio 0.4 RATIO (0.9-2.4); AST(SGOT) 34 U/L (15-37); Alanine Aminotransfer ALT/SGPT 28 U/L (16-61); Albumin, Serum 2.2 g/dL (3.2-5.0); Alkaline Phosphatase 79 U/L (45-117); Anion Gap 7 (5-15); BUN 29 mg/dL (7-18); BUN/Creat Ratio 37.8 RATIO (10-20); Calcium,Total 8.5 mg/dL (8.5-10.1); Chloride 104 mmol/L (98-107); Creatinine, Serum 0.77 mg/dL (0.70-1.30); EST Glomerular Filtration Rate 103 mL/min (>60); Est Glom Filt Rate - Afr Amer 124 mL/min (>60); Estimated Creatinine Clearance 49.62 ml/min; Globulin 4.9 g/dL (2.2-4.2); Glucose 117 mg/dL (74-106); Potassium 3.3 mmol/L (3.5-5.1); Protein, Total 7.1 g/dL (6.4-8.2); Sodium Level 139 mmol/L (136-145)
[2020-06-24 08:25] LABS: Differential Comment SCANNED
[2020-06-24 08:26] LABS: Reactive Lymphocyte RARE
[2020-06-24] MEDS: guaiFENesin 600 MG Tablet PO ×2 (08:28→20:41)
[2020-06-24] MEDS: dexAMETHasone 2 MG TABLET 6 MG PO (08:28)
[2020-06-24] MEDS: Atenolol 25 MG Tablet PO (08:29)
--- NOTE | 2020-06-24 09:42 | EKG12_ITS ---
Test Reason : RYTHCHG Blood Pressure : / mmHG Vent. Rate : 072 BPM Atrial Rate : 072 BPM P-R Int : 202 ms QRS Dur : 130 ms QT Int : 404 ms P-R-T Axes : 048 -55 -13 degrees QTc Int : 442 ms Normal sinus rhythm Left axis deviation Left ventricular hypertrophy with QRS widening Nonspecific T wave abnormality Abnormal ECG Confirmed by MONICA STEWARD, EVERARDO ([id number]), digital editor DORA VALDOVINOS ([id number]) on 06/29/2020 10:03:09 AM Referred By: MAGALIE Confirmed By:EVERARDO ANDERSON MD
[2020-06-24] MEDS: Enoxaparin 100 MG/ML Syringe 90 MG SC (10:14)
[2020-06-24] MEDS: LORazepam 1 MG Tablet PO (12:00)
[2020-06-24 12:26] LABS: BNP,B-Type NATRIURETIC PEPTIDE 91.9 pg/mL (0-100)
[2020-06-24 12:52] LABS: Procalcitonin 1.92 ng/mL (0.00-0.09)
--- NOTE | 2020-06-24 14:10 | CASEMGMT ---
RN CM called patient in room for initial transition planning/care coordination assessment. RN CM introduced self and role at [facility]. Patient is alert and oriented. Patient willing to participate in assessment and is able to answer all questions appropriately. Care providers, pharmacy, and demographics verified. Patient wishes to discharge home, denies need for home health at this time. Patient states he has no further needs or concerns at this time. CM to follow for discharge planning needs that may arise. PCP: [facility] Specialists: none Preferred Pharmacy: [facility] retail at discharge Insurance: [facility] Prescription Benefit: yes Living Will/HPOA: yes, Huyen Obregon LNOK: Living Arrangements: Patient lives with in a single story home with 3 steps and railing to enter the home. Transportation: self/ DME/HHC: Patient denies DME for himself. No previous HHC. Patient would like [employer] for DME needs. Disposition Plan: Patient to discharge home with family support and follow-up plans in place. Will monitor for home oxygen needs. Magdalene OKEEFE, RN, CM
--- NOTE | 2020-06-24 14:25 | PCM.CONS.PUL ---
Problem List (1) Easy bruising Status: Acute (2) Iron deficiency Status: Resolved (3) Ecchymosis Status: Acute (4) COVID-19 Status: Acute (5) Hypoxia Status: Acute (6) Hypertension Status: Chronic Qualifiers: Hypertension type: essential hypertension Qualified Code(s): I10 - Essential (primary) hypertension (7) Osteoarthrosis of knee Status: Acute Qualifiers: Osteoarthritis type: unspecified Laterality: right Qualified Code(s): M17.11 - Unilateral primary osteoarthritis, right knee Reason for Consult Date of Consultation: 06/24/20 Reason for Consultation: COVID-19 History of Present Illness: The patient is an 85 year old M with past medical history listed below, who presented to [facility] secondary to generalized aches, fatigue, cough, shortness of breath and loose stools. Patient reportedly stated he started having symptoms 2 weeks ago following a flu vaccination. Patient states he had contacted his PCP and was told that his symptoms were likely secondary to his flu shot. Patient states he continued to have worsening fatigue and eventually called EMS. EMS found patient was hypoxic on room air. Patient does not have a history of a need for supplemental oxygen, so was transported to the ER for further evaluation. In the ER, patient was described as mildly ill-appearing and saturating well on nasal cannula oxygen. A chest x-ray was obtained showing patchy bilateral infiltrates. Patient had a mild leukocytosis at 10.4 with normal renal function, lactic acid and hepatic function. Patient was hypokalemic at 2.8. An EKG showed sinus rhythm with a rate of [address] elevations. Patient was given some gentle fluid resuscitation, Decadron and admitted to the cohort unit for further evaluation. Since being on the cohort unit, patient has received remdesivir and tolerated this well. Patient overall feels subjectively unchanged compared to previous. Patient did have some agitation that had to be treated with Ativan. Patient was very vague on his symptomatology during my evaluation. Patient denied any current chest pain and stated he had diarrhea for a couple of days. Patient does state that he tends to go to grocery stores, but otherwise has been social distancing. Patient's has an oxygen concentrator, but he has never required this previously. Patient does report a history of smoking in the past, but describes himself as a pipe smoker and quit several years ago. Patient has never had a pulmonary function test or walking oximetry previously. Patient is unaware of any cardiovascular issues. Patient does carry diagnosis of hypertension, but does not check his blood pressure regularly. Review of systems otherwise negative from a constitutional, HEENT, respiratory, cardiovascular, GI, genitourinary, musculoskeletal, skin, neurologic, psychiatric and hematologic system unless stated above. 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 Allergies codeine Allergy (Verified 06/23/20 11:01) NEEDS FOLLOW-UP Home Medications: Ambulatory Orders Medication Instructions Recorded amlodipine 5 mg tablet 5 mg PO QDAY 07/25/17 atenolol 25 mg tablet 25 mg PO DAILY 07/25/17 saw palmetto 160 mg capsule 160 mg PO BID 07/25/17 coenzyme Q10 30 mg capsule 30 mg PO QDAY 01/11/18 pantoprazole 40 mg tablet,delayed 40 mg PO QDAY 01/11/18 release Cholecalciferol (Vitamin D3) 2,000 unit PO DAILY 02/05/19 [Vitamin D3] Hydrochlorothiazide [Hctz] 25 mg PO DAILY 02/05/19 Lisinopril [Zestril] 10 mg PO DAILY 02/05/19 Atorvastatin Calcium [Lipitor] 10 mg PO QHS 02/09/19 Meloxicam 15 mg PO DAILY 06/23/20 Surgical History: Surgical History (Last Reviewed 03/17/20 @ 14:30 by Per Nur) History of hernia surgery Z98.890, Z87.19 S/P hernia repair Z98.890, Z87.19 Surgical History: herniorrhaphy Psychiatric History: No pertinent psych hx Lives: Spouse/ Significant Other Smoking Status: Former smoker Tobacco Use: Non-smoker Alcohol: None Drugs: None - *Family History Maternal Family History: Family History (Last Reviewed 03/17/20 @ 14:30 by Per Nur) Mother Myocardial infarction Father Myocardial infarction CVA (cerebral vascular accident) Other Arthritis History Items: Heart Disease - NM Paternal Family History: Family History (Last Reviewed 03/17/20 @ 14:30 by Per Nur) Mother Myocardial infarction Father Myocardial infarction CVA (cerebral vascular accident) Other Arthritis History Items: Heart Disease - [place], Stroke Review of Systems Comment: See HPI Patient Problems: Active and Suspected Problems (Last Reviewed 03/17/20 @ 14:30 by Per Nur) COVID-19 (Acute) Hypoxia (Acute) Hypokalemia (Acute) Tachycardia (Acute) Objective: Chest x-ray was personally reviewed and does show some cardiomegaly with patchy bilateral infiltrates. Patient's last echocardiogram in our system was from 2011 and showed an EF of 60% with a RVSP of 26 mmHg and only trivial valvular abnormalities. Patient has never had a pulmonary function test. - Physical Exam Vitals/I&O's: Vital Signs Temp Pulse Resp BP Pulse Ox 36.1 C L 74 18 120/72 94 06/24/20 14:11 06/24/20 14:11 06/24/20 14:11 06/24/20 14:11 06/24/20 14:11 Oxygen Flow Rate (L/min) 2 Oxygen Delivery Method Nasal Cannula Weight: 96.3 kg Body Mass Index (BMI) 33.1 Intake and Output for Last 24 Hours 06/22/20 06/23/20 06/24/20 23:59 23:59 23:59 Intake Total 1920. / 2160. 2738.33 / 2738.33 Balance / 2738.33 / 2738.33 General: Alert, Oriented x3, Cooperative, No apparent distress, Well developed, Well nourished, - - Obese. Speaking in full sentences. HEENT: Atraumatic, PERRLA, EOMI, Normocephalic, - - No scleral icterus or injection noted Oral: Moist Mucosa, No Gingival or Mucosal Lesions/ Ulcerations, - - Crowded posterior pharynx Neck: Supple, No Nodes, Trachea Midline, JVD, Right Lungs: No rhonchi, No wheeze, No rales, Diminished, - - Symmetric expansion. No dullness to percussion Cardiovascular: Regular rate, Regular Rhythm, Normal S1, Normal S2, No murmurs, No rub noted, No Gallop Abdomen: Bowel Sounds Present, Soft, Non Tender, Non-Distended, Obese Extremities: No clubbing, No cyanosis, Edema - Trace lower extremity Skin: No rashes, No breakdown Musculoskeletal: No Tenderness to Palpation of Joints or Extremities Lymphatic: No Cervical, Supraclavicular, or Inguinal Adenopathy Neurological: Cranial nerves II-XII grossly intact, Neuro grossly intact, Motor Exam 5/5 strength throughout Psych/Mental Status: Normal Affect, Appropriate Microbiology Past 72 Hours 06/23/20 15:35 Mucosa - Nasopharyngeal Respiratory Panel (PCR) - Final Laboratory Results 06/23/20 11:00: Procalcitonin 1.92 H 06/23/20 13:29: B-Natriuretic Peptide 91.9 06/24/20 07:30: WBC 11.2 H, RBC 4.66, Hgb 12.2 L, Hct 39.4 L, MCV 84.5, MCH 26.2 L, MCHC 31.0 L, RDW Std Deviation 52.7 H, RDW Coeff of Hazel 17.2 H, Plt Count 375, MPV 11.3, Immature Gran % (Auto) 2.200 H, Neut % (Auto) 80.4 H, Lymph % (Auto) 11.4 L, [place] % (Auto) 5.6, Eos % (Auto) 0.0, Baso % (Auto) 0.4, Absolute Neuts (auto) 9.0 H, Absolute Lymphs (auto) 1.28, Nucleated RBC % 0, Differential Comment SCANNED, Reactive Lymphocytes RARE 06/24/20 07:30: Sodium 139, Potassium 3.3 L, Chloride 104, Carbon Dioxide 28.0, Anion Gap 7, BUN 29 H, Creatinine 0.77, Estim Creat Clear Calc 49.62, Est GFR (MDRD) Af Amer 124, Est GFR (MDRD) Non-Af 103, BUN/Creatinine Ratio 37.8 H, Glucose 117 H, Calcium 8.5, Total Bilirubin 0.40, AST 34, ALT 28, Alkaline Phosphatase 79, Total Protein 7.1, Albumin 2.2 L, Globulin 4.9 H, Albumin/Globulin Ratio 0.4 L Current Medications Acetaminophen (Acetaminophen 325 Mg Tablet) 650 mg PO Q6H PRN PRN PRN Reason: Pain Score 1-10/Temp > 100.7 F Albuterol Sulfate (Albuterol 2.5 Mg/3 Ml Vial.Neb.) 2.5 mg INHALATION Q2H PRN PRN PRN Reason: SOB/Wheezing Atenolol (Atenolol 25 Mg Tablet) 25 mg PO DAILY [facility] [place] Last Admin: 06/24/20 08:29 Dose: 25 mg Documented by: Dexamethasone (Dexamethasone 2 Mg Tablet) 6 mg PO DAILY [facility] [place] Stop: 07/02/20 10:01 Last Admin: 06/24/20 08:28 Dose: 6 mg Documented by: Enoxaparin Sodium (Enoxaparin 100 Mg/Ml Syringe) 90 mg SC BID [facility] [place] Last Admin: 06/24/20 10:14 Dose: 90 mg Documented by: Guaifenesin (Guaifenesin 600 Mg Tablet) 600 mg PO BID [facility] [place] Last Admin: 06/24/20 08:28 Dose: 600 mg Documented by: Sodium Chloride () 1,000 mls @ 75 mls/hr IV .[id number] [facility] [place] Last Infusion: 06/24/20 12:07 Dose: 75 mls/hr Documented by: Sodium Chloride () 250 mls @ 15 mls/hr IV .[id number] PRN PRN Reason: Saline Flush Sodium Chloride () 250 mls @ 15 mls/hr IV .[id number] PRN PRN Reason: Additional IVPB Infusion Remdesivir 100 mg/ Sodium (Chloride) 250 mls @ 125 mls/hr IV DAILY [facility] [place] Stop: 06/27/20 11:59 Last Infusion: 06/24/20 12:53 Dose: Infused Documented by: Ondansetron HCl (Ondansetron 4 Mg/2 Ml Vial) 4 mg IV Q8H PRN PRN PRN Reason: NAUSEA/VOMITING Psyllium Hydrophilic Mucilloid (Psyllium 1 Packet) 1 packet PO DAILY PRN PRN PRN Reason: Constipation Senna/Docusate Sodium (Senna/Docusate Sodium 1 Tablet) 2 tablet PO BID PRN PRN PRN Reason: Constipation Sodium Chloride (0.9% Saline Lock 10 Ml Syringe) 10 - 40 ml IV UD PRN PRN Reason: SALINE FLUSH Last Admin: 06/24/20 00:42 Dose: 10 ml Documented by: Clinical Impression(s) from Imaging Studies Chest X-Ray 06/23/20 11:00 IMPRESSION: Cardiomegaly with patchy peripheral opacities in both lung odom compatible with the given diagnosis of COVID. No focal consolidation at this time. Electronically Signed: Russel Mckeon MD at 11:36 EST , Service support , Assessment/Plan All Active Problems (Last Reviewed 03/17/20 @ 14:30 by Per Nur) Easy bruising (Acute) Iron deficiency (Resolved) Rash (Acute) Ecchymosis (Acute) COVID-19 (Acute) Hypoxia (Acute) Hypokalemia (Acute) Tachycardia (Acute) Osteoarthrosis of knee (Acute) RECOMMENDATIONS: 1. Likely okay to decrease Lovenox to DVT prophylaxis 2. Defer to infectious disease on convalescent serum and remdesivir 3. Hold on any further IV fluids 4. Monitor for hyperglycemia and hypertension from Decadron 5. Walking oximetry prior to discharge 6. Outpatient complete PFT for quantification clarification of lung function IMPRESSIONS: 1. Acute hypoxic respiratory insufficiency secondary to acute COVID-19 pneumonia Patient has received remdesivir and IV Decadron. Likely okay to transition to oral Decadron. Defer to infectious disease on convalescent serum. Patient likely does not have a PE, so Lovenox could be decreased from my perspective. Patient did receive IV hydration on presentation, but would limit further IV hydration as this can worsen hypoxia acutely. Wean oxygen as tolerated. Patient will need a walking oximetry prior to discharge. Patient would benefit from an outpatient pulmonary function test for quantification clarification of lung function. 2. Hypertension/obesity/arthritis/advanced age Complicates care, management, recovery and prognosis. We will have to watch patient closely for the development of steroid-induced hyperglycemia and hypertension. Avoid NSAID therapy if possible given concern for possible kidney injury. Inpatient E&M: 18911 Init Hosp L3
--- NOTE | 2020-06-24 14:34 | CON.PCM_ITS ---
Reason for Consult: vincent Consulted by: Dr. Duarte History of Present Illness: The patient is a 85 year old M presented yesterday with 2 weeks of fever, chills, dyspnea, and a lot of cough. started getting sick about 3 weeks ago. No change in taste or smell, no aches, no n/v/d. Came to ED, started on remdesivir, dex, and full dose lovenox. Feeling about the same today. No fever here. Full ROS performed and neg except as noted above. No chest pain. - Medical History Past Medical History (Chronic Problems): Chronic Problems (Last Reviewed 03/17/20 @ 14:30 by Per Nur) Leukocytosis, unspecified (Chronic) Neutrophilia (Chronic) Hypertension (Chronic) Allergies/Adverse Reactions: Allergies codeine Allergy (Verified 06/23/20 11:01) NEEDS FOLLOW-UP Home Medications: Ambulatory Orders Medication Instructions Recorded amlodipine 5 mg tablet 5 mg PO QDAY 07/25/17 atenolol 25 mg tablet 25 mg PO DAILY 07/25/17 saw palmetto 160 mg capsule 160 mg PO BID 07/25/17 coenzyme Q10 30 mg capsule 30 mg PO QDAY 01/11/18 pantoprazole 40 mg tablet,delayed 40 mg PO QDAY 01/11/18 release Cholecalciferol (Vitamin D3) 2,000 unit PO DAILY 02/05/19 [Vitamin D3] Hydrochlorothiazide [Hctz] 25 mg PO DAILY 02/05/19 Lisinopril [Zestril] 10 mg PO DAILY 02/05/19 Atorvastatin Calcium [Lipitor] 10 mg PO QHS 02/09/19 Meloxicam 15 mg PO DAILY 06/23/20 - Social History SMOKING STATUS:: Former smoker Vital Signs Temp Pulse Resp BP Pulse Ox 96.9 F L 74 18 120/72 94 06/24/20 14:11 06/24/20 14:11 06/24/20 14:11 06/24/20 14:11 06/24/20 14:11 Oxygen Flow Rate (L/min) 2 Oxygen Delivery Method Nasal Cannula Weight: 96.3 kg Body Mass Index (BMI) 33.1 Microbiology Past 72 Hours 06/23/20 15:35 Respiratory Panel (PCR) - Final Mucosa - Nasopharyngeal Laboratory Tests Past 24 Hrs 06/23/20 06/23/20 06/24/20 11:00 13:29 07:30 WBC 11.2 H RBC 4.66 Hgb 12.2 L Hct 39.4 L MCV 84.5 MCH 26.2 L MCHC 31.0 L RDW Std Deviation 52.7 H RDW Coeff of Hazel 17.2 H Plt Count 375 MPV 11.3 Immature Gran % (Auto) 2.200 H Neut % (Auto) 80.4 H Lymph % (Auto) 11.4 L [place] % (Auto) 5.6 Eos % (Auto) 0.0 Baso % (Auto) 0.4 Absolute Neuts (auto) 9.0 H Absolute Lymphs (auto) 1.28 Nucleated RBC % 0 Differential Comment SCANNED Reactive Lymphocytes RARE Sodium Potassium Chloride Carbon Dioxide Anion Gap BUN Creatinine Estim Creat Clear Calc Est GFR (MDRD) Af Amer Est GFR (MDRD) Non-Af BUN/Creatinine Ratio Glucose Calcium Total Bilirubin AST ALT Alkaline Phosphatase B-Natriuretic Peptide 91.9 Total Protein Albumin Globulin Albumin/Globulin Ratio Procalcitonin 1.92 H 06/24/20 07:30 WBC RBC Hgb Hct MCV MCH MCHC RDW Std Deviation RDW Coeff of Hazel Plt Count MPV Immature Gran % (Auto) Neut % (Auto) Lymph % (Auto) [place] % (Auto) Eos % (Auto) Baso % (Auto) Absolute Neuts (auto) Absolute Lymphs (auto) Nucleated RBC % Differential Comment Reactive Lymphocytes Sodium 139 Potassium 3.3 L Chloride 104 Carbon Dioxide 28.0 Anion Gap 7 BUN 29 H Creatinine 0.77 Estim Creat Clear Calc 49.62 Est GFR (MDRD) Af Amer 124 Est GFR (MDRD) Non-Af 103 BUN/Creatinine Ratio 37.8 H Glucose 117 H Calcium 8.5 Total Bilirubin 0.40 AST 34 ALT 28 Alkaline Phosphatase 79 B-Natriuretic Peptide Total Protein 7.1 Albumin 2.2 L Globulin 4.9 H Albumin/Globulin Ratio 0.4 L Procalcitonin - Other Studies Radiology: [] reviewed Other Studies: [] Route of nutrition/ use of supplements: [] Nutritional Intake: [] IV Site: [] [place] Catheter: [] - Physical Exam General: Alert, Oriented x3, Cooperative, No apparent distress HEENT: Atraumatic, PERRLA, EOMI Neck: Supple, No Nodes Lungs: Clear to auscultation, Diminished Cardiovascular: Regular rate, Regular Rhythm Abdomen: Soft, Non Tender, Non-Distended Extremities: No edema Skin: No rashes IV Site: Peripheral, without redness Musculoskeletal: No Tenderness to Palpation of Joints or Extremities Neurological: Cranial nerves II-XII grossly intact - Assessment/Plan Antibiotics: [] Assessment/Plan: [] Active and Suspected Problems (Last Reviewed 03/17/20 @ 14:30 by Per Nur) Easy bruising (Acute) Ecchymosis (Acute) COVID-19 (Acute) Hypoxia (Acute) Hypokalemia (Acute) Tachycardia (Acute) Osteoarthrosis of knee (Acute) covid with hypoxia - sx started about 2 weeks ago. was sick prior to him, also admitted. On 2L here with initial sat of 84% on RA. D-dimer mildly elevat ed. On dex, plan on 10 day course. On remdesivir, but may be minimal benefit given duration of symptoms. Will decrease lovenox to 40mg bid as intermediate dose proph; low suspicion at this point for PE. Will order lab monitoring while on remdesivir. Will follow, thank you
[2020-06-24] MEDS: Enoxaparin 40 MG/0.4 ML Syringe SC (20:42)
--- NOTE | 2020-06-24 20:44 | NURSING ---
heard yelling in [place] went to investigate pt out of his room wandering states he is leaving refusing to go back to his room, states his covid is over he is not sick. called for primary rn to help. called [facility] 3 edi coordinator and asked for pts to call him in his room as she is a pt on other unit. pt eventually went back to his room is talking to him on phone. primary rn in room with pt. notified new orders. nursing supv notified
[2020-06-24] MEDS: Haloperidol Lactate 5 MG/ML Vial 2 MG IV (20:57)
--- NOTE | 2020-06-24 22:12 | NURSING ---
pt resting quietly in bed now
[2020-06-25] VITALS (13 sets, daily range): BP systolic 109–142; BP diastolic 66–92; PULSE 58–117; RESP 16–18; TEMP 36.3–36.7; O2SAT 87–97
[2020-06-25 08:18] LABS: ALB/GLOB Ratio 0.6 RATIO (0.9-2.4); AST(SGOT) 43 U/L (15-37); Alanine Aminotransfer ALT/SGPT 37 U/L (16-61); Albumin, Serum 2.3 g/dL (3.2-5.0); Alkaline Phosphatase 77 U/L (45-117); Anion Gap 7 (5-15); BUN 27 mg/dL (7-18); BUN/Creat Ratio 43.3 RATIO (10-20); Calcium,Total 8.4 mg/dL (8.5-10.1); Chloride 105 mmol/L (98-107); Creatinine, Serum 0.62 mg/dL (0.70-1.30); EST Glomerular Filtration Rate 131 mL/min (>60); Est Glom Filt Rate - Afr Amer 158 mL/min (>60); Estimated Creatinine Clearance 49.62 ml/min; Globulin 3.8 g/dL (2.2-4.2); Glucose 101 mg/dL (74-106); Protein, Total 6.1 g/dL (6.4-8.2); Sodium Level 141 mmol/L (136-145)
[2020-06-25] MEDS: guaiFENesin 600 MG Tablet PO (08:39)
[2020-06-25] MEDS: Pantoprazole Sodium 40 MG Tablet PO (08:39)
[2020-06-25] MEDS: dexAMETHasone 2 MG TABLET 6 MG PO (08:39)
[2020-06-25] MEDS: Atorvastatin Calcium 10 MG Tablet PO (08:39)
[2020-06-25] MEDS: Atenolol 25 MG Tablet PO (08:40)
[2020-06-25] MEDS: amLODIPine 5 MG Tablet PO (08:40)
[2020-06-25 08:42] LABS: Hematocrit 35.3 % (40-54); Hemoglobin 11.2 g/dL (13.0-16.5); Mean Corp Hgb Conc 31.7 g/dL (32-36); Mean Corpuscular Hgb 26.5 pg (27.0-32.0); Mean Corpuscular Volume 83.6 fL (80-94); Mean Platelet Vol. 11.4 fl (6.2-12.0); Platelet Count 377 K/mm3 (150-450); RBC Distribution Width CV 17.3 % (11.6-14.6); RBC Distribution Width SD 52.8 fl (35.1-43.9); Red Blood Count 4.22 M/mm3 (4.6-6.2); White Blood Count 13.1 K/mm3 (4.4-11.0)
[2020-06-25] MEDS: Enoxaparin 40 MG/0.4 ML Syringe SC (08:43)
[2020-06-25] MEDS: 0.9% Saline Lock 10 ML Syringe IV (08:46)
--- NOTE | 2020-06-25 11:16 | PN_ITS ---
Patient Problems: Active and Suspected Problems (Last Reviewed 03/17/20 @ 14:30 by Per Nur) Easy bruising (Acute) Ecchymosis (Acute) COVID-19 (Acute) Hypoxia (Acute) Hypokalemia (Acute) Tachycardia (Acute) Osteoarthrosis of knee (Acute) Subjective: Patient did okay overnight from a hemodynamic standpoint. Patient remains very anxious and is asking to go home. Patient was found on room air and denied any shortness of breath. No significant GI symptoms were reported. No side effects reported by patient per mom does appear - Physical Exam Vitals/I&O's: Vital Signs Temp Pulse Resp BP Pulse Ox 36.3 C L 65 18 142/92 H 91 06/25/20 07:20 06/25/20 11:00 06/25/20 07:20 06/25/20 07:20 06/25/20 08:47 Oxygen Flow Rate (L/min) [ 2 AMBULATION with Oxygen] Oxygen Flow Rate (L/min) 2 Oxygen Delivery Method Room Air Weight: 97.568 kg Body Mass Index (BMI) 33.1 Intake and Output for Last 24 Hours 06/23/20 06/24/20 06/25/20 23:59 23:59 23:59 Intake Total 1921.25 / 2161.25 3618.33 / 3718.33 340 / 340 Balance 1920. / 2160.25 3618.33 / 3718.33 340 / 340 General: Alert, Oriented x3, Cooperative, - - Very anxious and almost crying about discussing home HEENT: Atraumatic, PERRLA, EOMI, Normocephalic, - - No scleral icterus or injection noted Oral: Moist Mucosa, No Gingival or Mucosal Lesions/ Ulcerations Neck: Supple, No JVD, No Nodes, Trachea Midline Lungs: No rhonchi, No wheeze, No rales, Diminished, - - Symmetric expansion. No dullness to percussion. Cardiovascular: Regular rate, Regular Rhythm, Normal S1, Normal S2, No murmurs, No rub noted, No Gallop Abdomen: Bowel Sounds Present, Soft, Non Tender, Non-Distended, Obese Extremities: No clubbing, No cyanosis, No edema Skin: No rashes, No breakdown Musculoskeletal: No Tenderness to Palpation of Joints or Extremities Lymphatic: No Cervical, Supraclavicular, or Inguinal Adenopathy Neurological: Cranial nerves II-XII grossly intact, Neuro grossly intact, Motor Exam 5/5 strength throughout Psych/Mental Status: Anxious, Impulsive, Restless Microbiology Past 72 Hours 06/23/20 11:05 Blood Culture (Wb) - No Site/Description Given Blood Culture - Preliminary No growth in 48 hours. 06/23/20 11:00 Blood Culture (Wb) - Left Forearm Blood Culture - Preliminary No growth in 48 hours. 06/23/20 15:35 Mucosa - Nasopharyngeal Respiratory Panel (PCR) - Final Laboratory Results 06/23/20 11:00: Procalcitonin 1.92 H 06/23/20 13:29: B-Natriuretic Peptide 91.9 06/25/20 07:18: WBC 13.1 H, RBC 4.22 L, Hgb 11.2 L, Hct 35.3 L, MCV 83.6, MCH 26.5 L, MCHC 31.7 L, RDW Std Deviation 52.8 H, RDW Coeff of Hazel 17.3 H, Plt Count 377, MPV 11.4 06/25/20 07:18: Sodium 141, Potassium 4.0, Chloride 105, Carbon Dioxide 29.0, Anion Gap 7, BUN 27 H, Creatinine 0.62 L, Estim Creat Clear Calc 49.62, Est GFR (MDRD) Af Amer 158, Est GFR (MDRD) Non-Af 131, BUN/Creatinine Ratio 43.3 H, Glucose 101, Calcium 8.4 L, Total Bilirubin 0.40, AST 43 H, ALT 37, Alkaline Phosphatase 77, Total Protein 6.1 L, Albumin 2.3 L, Globulin 3.8, Albumin/Globulin Ratio 0.6 L Current Medications Acetaminophen (Acetaminophen 325 Mg Tablet) 650 mg PO Q6H PRN PRN PRN Reason: Pain Score 1-10/Temp > 100.7 F Albuterol Sulfate (Albuterol 2.5 Mg/3 Ml Vial.Neb.) 2.5 mg INHALATION Q2H PRN PRN PRN Reason: SOB/Wheezing Amlodipine Besylate (Amlodipine 5 Mg Tablet) 5 mg PO DAILY [facility] Last Admin: 06/25/20 08:40 Dose: 5 mg Documented by: Atenolol (Atenolol 25 Mg Tablet) 25 mg PO DAILY [facility] Last Admin: 06/25/20 08:40 Dose: 25 mg Documented by: Atorvastatin Calcium (Atorvastatin Calcium 10 Mg Tablet) 10 mg PO DAILY [facility] Last Admin: 06/25/20 08:39 Dose: 10 mg Documented by: Dexamethasone (Dexamethasone 2 Mg Tablet) 6 mg PO DAILY [facility] Stop: 07/02/20 10:01 Last Admin: 06/25/20 08:39 Dose: 6 mg Documented by: Enoxaparin Sodium (Enoxaparin 40 Mg/0.4 Ml Syringe) 40 mg SC BID [facility] Last Admin: 06/25/20 08:43 Dose: 40 mg Documented by: Guaifenesin (Guaifenesin 600 Mg Tablet) 600 mg PO BID [facility] Last Admin: 06/25/20 08:39 Dose: 600 mg Documented by: Sodium Chloride () 250 mls @ 15 mls/hr IV .[id number] PRN PRN Reason: Saline Flush Sodium Chloride () 250 mls @ 15 mls/hr IV .[id number] PRN PRN Reason: Additional IVPB Infusion Remdesivir 100 mg/ Sodium (Chloride) 250 mls @ 125 mls/hr IV DAILY [facility] Stop: 06/27/20 11:59 Last Admin: 06/25/20 10:12 Dose: 125 mls/hr Documented by: Ondansetron HCl (Ondansetron 4 Mg/2 Ml Vial) 4 mg IV Q8H PRN PRN PRN Reason: NAUSEA/VOMITING Pantoprazole Sodium (Pantoprazole Sodium 40 Mg Tablet) 40 mg PO DAILY [facility] Last Admin: 06/25/20 08:39 Dose: 40 mg Documented by: Potassium Chloride (Potassium Chloride 20 Meq Tablet) 40 meq PO BID@1000,1700 [facility] Last Admin: 06/25/20 08:39 Dose: 40 meq Documented by: Psyllium Hydrophilic Mucilloid (Psyllium 1 Packet) 1 packet PO DAILY PRN PRN PRN Reason: Constipation Senna/Docusate Sodium (Senna/Docusate Sodium 1 Tablet) 2 tablet PO BID PRN PRN PRN Reason: Constipation Sodium Chloride (0.9% Saline Lock 10 Ml Syringe) 10 - 40 ml IV UD PRN PRN Reason: SALINE FLUSH Last Admin: 06/25/20 08:46 Dose: 10 ml Documented by: Medical Necessity - Tobacco Use Smoking Status: Former smoker Tobacco Use: Non-smoker Assessment/Plan All Active Problems (Last Reviewed 03/17/20 @ 14:30 by Per Nur) Easy bruising (Acute) Iron deficiency (Resolved) Rash (Acute) Ecchymosis (Acute) COVID-19 (Acute) Hypoxia (Acute) Hypokalemia (Acute) Tachycardia (Acute) Osteoarthrosis of knee (Acute) RECOMMENDATIONS: 1. Continue anticoagulation 2. Defer to infectious disease on convalescent serum and remdesivir 3. Okay to continue remdesivir given today's labs 4. Monitor for hyperglycemia and hypertension from Decadron 5. Walking oximetry prior to discharge 6. Outpatient complete PFT for quantification clarification of lung function IMPRESSIONS: 1. Acute hypoxic respiratory insufficiency secondary to acute COVID-19 pneumonia Patient has received remdesivir and PO Decadron. Patient has tolerated Remdesivir well. Patient did receive convalescent serum orders, but this has not been given yet. Patient is asking to go home. Current oxygen demands are not prohibitive, but patient may continue to. Patient would be at risk for development complications, but if demanding to go home supplemental oxygen could be provided following a walking oximetry. Patient would need to follow-up in our office in 3 to 4 weeks. Alternatively, patient could continue with remdesivir and convalescent plasma could be given when available. Defer to hospitalist. 2. Hypertension/obesity/arthritis/advanced age Complicates care, management, recovery and prognosis. We will have to watch patient closely for the development of steroid-induced hyperglycemia and hypertension. Avoid NSAID therapy if possible given concern for possible kidney injury. Inpatient E&M: 94445 Subs Hosp L2
--- NOTE | 2020-06-25 14:01 | DCINST_ITS ---
- Discharge Diagnoses Current Active Problems: Current Active and Chronic Problems (Last Reviewed 03/17/20 @ 14:30 by Per Nur) Easy bruising (Acute) Ecchymosis (Acute) COVID-19 (Acute) Hypoxia (Acute) Hypokalemia (Acute) Tachycardia (Acute) Hypertension (Chronic) Osteoarthrosis of knee (Acute) Reason(s) for Visit for Discharge Instructions: Acute COVID-19 pneumonia You will use the following diet at home:: Cardiac Your food should be the consistency of: Regular Your liquids should be the consistency of: Regular/Thin Discharge Activity: Return to Normal Activity Additional Instructions: Continue to use your incentive spirometer all the time. Complete the oral steroid. You should be on oxygen especially when you ambulate. You have been prescribed an anticoagulant to be taken for 2 weeks. Allergies/Adverse Reactions: Allergies codeine Allergy (Verified 06/23/20 11:01) NEEDS FOLLOW-UP Medications to take at Discharge amlodipine 5 mg tablet 5 mg PO QDAY 07/25/17 atenolol 25 mg tablet 25 mg PO DAILY 07/25/17 saw palmetto 160 mg capsule 160 mg PO BID 07/25/17 coenzyme Q10 30 mg capsule 30 mg PO QDAY 01/11/18 pantoprazole 40 mg tablet,delayed release 40 mg PO QDAY 01/11/18 Cholecalciferol (Vitamin D3) [Vitamin D3] 2,000 unit PO DAILY 02/05/19 Hydrochlorothiazide [Hctz] 25 mg PO DAILY 02/05/19 Atorvastatin Calcium [Lipitor] 10 mg PO QHS 02/09/19 Apixaban [Eliquis] 5 mg PO BID 14 Days #28 tab.ds.pk 06/25/20 Dexamethasone 6 mg PO DAILY 7 Days #7 tab 06/25/20 Guaifenesin [Mucinex] 600 mg PO BID 10 Days #20 tab 06/25/20 The following prescriptions were given: Dexamethasone 6 mg PO DAILY 7 Days #7 tab Transmission Status: Pending to [facility] Guaifenesin [Mucinex] 600 mg PO BID 10 Days #20 tab Transmission Status: Sent to [facility]30 Primary Care Physician: Teresa Castellano DO [Primary Care Provider] - Please follow up with your Primary Care Physician in: within 1-2 weeks Test Results: Test results from this visit will be discussed in further detail at your follow- up appointment, if applicable. Please Follow Up With: Nicolas Barth MD When: within 2 weeks Proposed Discharge Date: 06/25/20
--- NOTE | 2020-06-25 14:06 | DS.PCM_ITS ---
Discharge Date and Diagnosis - Problem List Patient Problems: Active and Suspected Problems (Last Reviewed 03/17/20 @ 14:30 by Per Nur) Easy bruising (Acute) Ecchymosis (Acute) COVID-19 (Acute) Hypoxia (Acute) Hypokalemia (Acute) Tachycardia (Acute) Osteoarthrosis of knee (Acute) Date of Admission: 06/23/20 Date of Discharge: 06/25/20 - Primary Discharge Diagnosis Acute Problems: Active Problems (Last Reviewed 03/17/20 @ 14:30 by Per Nur) Acute hypoxic respiratory insufficiency secondary to acute COVID-19 pneumonia Acute COVID-19 pneumonia hypoxia MATEUS, renal secondary to dehydration. Hypokalemia Uncontrolled hypertension - Secondary Discharge Diagnosis Chronic Problems: Chronic Problems (Last Reviewed 03/17/20 @ 14:30 by Per Nur) Leukocytosis, unspecified (Chronic) Neutrophilia (Chronic) Hypertension (Chronic) Hospital Course and Treatment Imaging Results: Clinical Impression(s) from Imaging Studies Chest X-Ray 06/23/20 11:00 IMPRESSION: Cardiomegaly with patchy peripheral opacities in both lung odom compatible with the given diagnosis of COVID. No focal consolidation at this time. Electronically Signed: Russel Mckeon MD at 11:36 EST , Service support , ID Pulmonology Operations: None Procedures: None Summary of Care Provided: The patient is a 85 year old M with past medical history of hypertension, osteoarthritis who comes in with shortness of breath ongoing for couple of days. Patient was diagnosed with COVID-19 infection 2 weeks prior to admission. 2 days prior to this admission, he was satting in the 70s on his pulse oximeter. The emergency department, he was satting 84% on room air and improved to 95% on 2 L. He had an increase in his BUN and creatinine secondary to dehydration. His D-dimer was elevated. Patient refused to undergo CT of the chest to rule out PE. His admitting chest x-ray showed cardiomegaly with peripheral patchy opacities in both lung odom. He was admitted to the cohort Covid unit, managed on dexamethasone and remdesivir. He did not receive convalescent plasma. His kidney function continue to improve and was back to normal at the time of discharge. Patient had significant anxiety and feeling of claustrophobia during this hospital stay. On the day of discharge he was evaluated for ambulatory oxygen and qualified for discharge on 2 L of oxygen with ambulation. He will follow-up with his primary care doctor as well as with pulmonology within 2 weeks. Patient Problems: Active and Suspected Problems (Last Reviewed 03/17/20 @ 14:30 by Per Nur) Easy bruising (Acute) Ecchymosis (Acute) COVID-19 (Acute) Hypoxia (Acute) Hypokalemia (Acute) Tachycardia (Acute) Osteoarthrosis of knee (Acute) Subjective: On the day of discharge patient was seen and examined. Denied any new complaints. He was off oxygen. He was ambulated and qualified for 2 L of oxygen Objective: Physical exam: General: Alert, Oriented x3, Cooperative, No apparent distress HEENT: Atraumatic, PERRLA, EOMI, Normocephalic Oral: Moist Mucosa Neck: Supple, No JVD Lungs: Clear to auscultation, Diminished Cardiovascular: Regular rate, Regular Rhythm, Normal S1, Normal S2, No murmurs Abdomen: Bowel Sounds Present, Soft, Non Tender, Non-Distended, No Hepato- splenomegaly Extremities: No edema Skin: No rashes Musculoskeletal: No Tenderness to Palpation of Joints or Extremities Lymphatic: No Cervical, Supraclavicular, or Inguinal Adenopathy Neurological: Cranial nerves II-XII grossly intact, Motor Exam 5/5 strength throughout Psych/Mental Status: Normal Affect, Appropriate - Physical Exam Vitals/I&O's: Vital Signs Temp Pulse Resp BP Pulse Ox 97.8 F 74 18 110/66 94 06/25/20 13:27 06/25/20 13:27 06/25/20 13:27 06/25/20 13:27 06/25/20 13:27 Oxygen Flow Rate (L/min) [ 2 AMBULATION with Oxygen] Oxygen Flow Rate (L/min) 2 Oxygen Delivery Method Room Air Weight: 97.568 kg Body Mass Index (BMI) 33.1 Intake and Output for Last 24 Hours 06/23/20 06/24/20 06/25/20 23:59 23:59 23:59 Intake Total 1920. / 3618.33 / 3718.33 590 / 590 Balance / 3617.33 / 3718.33 590 / 590 Microbiology Past 72 Hours 06/23/20 11:05 Blood Culture (Wb) - No Site/Description Given Blood Culture - Preliminary No growth in 48 hours. 06/23/20 11:00 Blood Culture (Wb) - Left Forearm Blood Culture - Preliminary No growth in 48 hours. 06/23/20 15:35 Mucosa - Nasopharyngeal Respiratory Panel (PCR) - Final Laboratory Results 06/25/20 07:18: WBC 13.1 H, RBC 4.22 L, Hgb 11.2 L, Hct 35.3 L, MCV 83.6, MCH 26.5 L, MCHC 31.7 L, RDW Std Deviation 52.8 H, RDW Coeff of Hazel 17.3 H, Plt Count 377, MPV 11.4 06/25/20 07:18: Sodium 141, Potassium 4.0, Chloride 105, Carbon Dioxide 29.0, Anion Gap 7, BUN 27 H, Creatinine 0.62 L, Estim Creat Clear Calc 49.62, Est GFR (MDRD) Af Amer 158, Est GFR (MDRD) Non-Af 131, BUN/Creatinine Ratio 43.3 H, Glucose 101, Calcium 8.4 L, Total Bilirubin 0.40, AST 43 H, ALT 37, Alkaline Phosphatase 77, Total Protein 6.1 L, Albumin 2.3 L, Globulin 3.8, Albumin/Globulin Ratio 0.6 L Current Medications Acetaminophen (Acetaminophen 325 Mg Tablet) 650 mg PO Q6H PRN PRN PRN Reason: Pain Score 1-10/Temp > 100.7 F Albuterol Sulfate (Albuterol 2.5 Mg/3 Ml Vial.Neb.) 2.5 mg INHALATION Q2H PRN PRN PRN Reason: SOB/Wheezing Amlodipine Besylate (Amlodipine 5 Mg Tablet) 5 mg PO DAILY [facility] Last Admin: 06/25/20 08:40 Dose: 5 mg Documented by: Atenolol (Atenolol 25 Mg Tablet) 25 mg PO DAILY [facility] Last Admin: 06/25/20 08:40 Dose: 25 mg Documented by: Atorvastatin Calcium (Atorvastatin Calcium 10 Mg Tablet) 10 mg PO DAILY [facility] Last Admin: 06/25/20 08:39 Dose: 10 mg Documented by: Dexamethasone (Dexamethasone 2 Mg Tablet) 6 mg PO DAILY [facility] Stop: 07/02/20 10:01 Last Admin: 06/25/20 08:39 Dose: 6 mg Documented by: Enoxaparin Sodium (Enoxaparin 40 Mg/0.4 Ml Syringe) 40 mg SC BID [facility] Last Admin: 06/25/20 08:43 Dose: 40 mg Documented by: Guaifenesin (Guaifenesin 600 Mg Tablet) 600 mg PO BID [facility] Last Admin: 06/25/20 08:39 Dose: 600 mg Documented by: Sodium Chloride () 250 mls @ 15 mls/hr IV .[id number] PRN PRN Reason: Saline Flush Sodium Chloride () 250 mls @ 15 mls/hr IV .[id number] PRN PRN Reason: Additional IVPB Infusion Remdesivir 100 mg/ Sodium (Chloride) 250 mls @ 125 mls/hr IV DAILY [facility] Stop: 06/27/20 11:59 Last Infusion: 06/25/20 12:25 Dose: Infused Documented by: Ondansetron HCl (Ondansetron 4 Mg/2 Ml Vial) 4 mg IV Q8H PRN PRN PRN Reason: NAUSEA/VOMITING Pantoprazole Sodium (Pantoprazole Sodium 40 Mg Tablet) 40 mg PO DAILY [facility] Last Admin: 06/25/20 08:39 Dose: 40 mg Documented by: Potassium Chloride (Potassium Chloride 20 Meq Tablet) 40 meq PO BID@1000,1700 [facility] Last Admin: 06/25/20 08:39 Dose: 40 meq Documented by: Psyllium Hydrophilic Mucilloid (Psyllium 1 Packet) 1 packet PO DAILY PRN PRN PRN Reason: Constipation Senna/Docusate Sodium (Senna/Docusate Sodium 1 Tablet) 2 tablet PO BID PRN PRN PRN Reason: Constipation Sodium Chloride (0.9% Saline Lock 10 Ml Syringe) 10 - 40 ml IV UD PRN PRN Reason: SALINE FLUSH Last Admin: 06/25/20 08:46 Dose: 10 ml Documented by: Discharge Diet: Low fat/ Low Cholesterol, 2000 mg Sodium Diet Discharge Activity: Return to Normal Activity Home Medications: Medications to take at Discharge amlodipine 5 mg tablet 5 mg PO QDAY 07/25/17 atenolol 25 mg tablet 25 mg PO DAILY 07/25/17 saw palmetto 160 mg capsule 160 mg PO BID 07/25/17 coenzyme Q10 30 mg capsule 30 mg PO QDAY 01/11/18 pantoprazole 40 mg tablet,delayed release 40 mg PO QDAY 01/11/18 Cholecalciferol (Vitamin D3) [Vitamin D3] 2,000 unit PO DAILY 02/05/19 Hydrochlorothiazide [Hctz] 25 mg PO DAILY 02/05/19 Atorvastatin Calcium [Lipitor] 10 mg PO QHS 02/09/19 Apixaban [Eliquis] 5 mg PO BID 14 Days #28 tab.ds.pk 06/25/20 Dexamethasone 6 mg PO DAILY 7 Days #7 tab 06/25/20 Guaifenesin [Mucinex] 600 mg PO BID 10 Days #20 tab 06/25/20 Following Prescriptions Were Given to Patient: Dexamethasone 6 mg PO DAILY 7 Days #7 tab Prescription Printed Apixaban [Eliquis] 5 mg PO BID 14 Days #28 tab.ds.pk Prescription Printed Guaifenesin [Mucinex] 600 mg PO BID 10 Days #20 tab Prescription Printed Primary Care Physician: Teresa Castellano DO [Primary Care Provider] - Please follow up with your Primary Care Physician in: within 1-2 weeks Please Follow Up With: Nicolas Barth MD When: within 2 weeks Disposition: Home Minutes spent on discharge:: 45 Patient Condition:: Stable Medical Necessity - Tobacco Use Smoking Status: Former smoker Tobacco Use: Non-smoker Meaningful Use Info Meaningful Use Diagnoses (Choose all that apply): None applicable Inpatient E&M: 71876 Disch Hosp
== END 2020-06-25 18:40 | disposition home or self-care (01) | DRG 177 ==
LOC: ED 12:10 → MS2 14:52
PROVIDERS: Internal Medicine Infectious Disease; Admitting Provider Internal Medicine; Emergency Provider Emergency Medicine; PCP Internal Medicine; Visit Provider Internal Medicine
DX: U07.1 COVID-19 (principal); J12.89 Other viral pneumonia; N17.9 Acute kidney failure, unspecified; R09.02 Hypoxemia; R06.89 Other abnormalities of breathing; E86.0 Dehydration; E87.6 Hypokalemia; I11.9 Hypertensive heart disease without heart failure; Z87.891 Personal history of nicotine dependence; M17.0 Bilateral primary osteoarthritis of knee; Z79.899 Other long term (current) drug therapy; E66.9 Obesity, unspecified; Z68.35 Body mass index [BMI] 35.0-35.9, adult
CPT/HCPCS: 36415; 71045; 80053; 82550; 83605; 83735; 83880; 84145; 84484; 85025; 85027; 85379; 87040; 87633; 93005; 97116; 97162; 97166; 97530; 97802; 99251; 99285; J7030; J7050; A4216; G0463

== ENCOUNTER 2020-08-21 11:12 | Emergency (ER) | payer MEDICARE, OTHER, SELFPAY ==
[2020-08-21 11:13] VITALS: PULSE 100; RESP 16; TEMP 36; O2SAT 96; BMI 36.3
[2020-08-21 11:15] VITALS: BP 188/105; PULSE 99; RESP 16; O2SAT 98
--- NOTE | 2020-08-21 11:39 | ED.VIS.GEN ---
History of Present Illness Chief Complaint: Nosebleed Informant: Patient Narrative: 85-year-old male presents for evaluation of right-sided nosebleed. Patient states it started during the night last night and he was able to get it stop with pressure and ice. However this morning to his nose and he was not able to get it to stop. He states that it has been years since he has had a nosebleed. He states that he is not on any blood thinners. - Past Medical History (1) Osteoarthrosis of knee Status: Chronic (2) Hypertension Status: Chronic Past Medical History - Allergies and Home Meds Allergies/Adverse Reactions: Allergies codeine Allergy (Verified 08/08/20 14:00) NEEDS FOLLOW-UP diazepam [From Valium] Allergy (Verified 08/21/20 11:15) NEEDS FOLLOW-UP Primary Care Physician: Teresa Castellano DO [Primary Care Provider] - Surgical History: herniorrhaphy Smoking Status: Former smoker Drugs: None - Family History Maternal Family History: Family History (Last Reviewed 03/17/20 @ 14:30 by Per Nur) Mother Myocardial infarction Father Myocardial infarction CVA (cerebral vascular accident) Other Arthritis Family History: Reports: Heart Disease - [place] Paternal Family History: Family History (Last Reviewed 03/17/20 @ 14:30 by Per Nur) Mother Myocardial infarction Father Myocardial infarction CVA (cerebral vascular accident) Other Arthritis Family History: Reports: Heart Disease - [place], Stroke Review of Systems General: Denies: Chills, Fever, Sweats Eyes: Denies: Visual changes - bilaterally, Diplopia ENT: Reports: - - Right-sided nosebleed. Denies: Bilateral ear pain, Left ear pain, Sore throat Cardiovascular: Denies: Chest pain, Palpitations Respiratory: Denies: Dyspnea, Cough, Dyspnea on exertion Gastrointestinal: Denies: Abdominal pain, Nausea, Vomiting, Diarrhea, Melena, Hematochezia Genitourinary: Denies: Dysuria, Hematuria, Frequency Musculoskeletal: Denies: Back pain, Extremity Pain Skin: Denies: Rash, Wounds Neurological: Denies: Headache, Weakness, Numbness Physical Exam Vital Signs/Narrative: Vital Signs Temp Pulse Resp BP Pulse Ox 08/21/20 11:15 99 16 188/105 H 98 08/21/20 11:13 96.8 F L 100 16 96 Inital Vital Signs reviewed: Yes General: Well nourished, Well developed, Obese, No Acute Distress Head: Normocephalic, Atraumatic Eyes: Perrl, EOMI ENT: Moist mucous membranes, No rhinorrhea, - - There is active bleeding coming from the anterior plexus on the right. Large clots were evacuated by blowing. Neck: Supple, Nontender Cardiovascular: Regular rate, Regular rhythm, No murmurs Respiratory: No distress, CTA bilaterally, Chest nontender Abdomen: Soft, Nontender, Nondistended, Normal bowel sounds Back: Nontender, Normal Inspection Extremities: Nontender, No edema Skin: Normal color, No rash Neurological: Alert, Oriented x3, Cranial nerves II-XII grossly intact, Normal Strength, Normal Sensation Psychological: Normal affect, Normal Mood Diagnostic/Tx/Re-eval - Medical Decision Making And anterior nasal packing was placed and inflated with approximately 5 cc of air. Patient was observed. Patient was advised that on Saturday which will be his third day of packing he can remove it in the evening. This would be more convenient for him as he is supposed to have an eye surgery on Saturday. If he has further bleeding or has any concerns he should return to emergency. I will refer him to ENT for as needed. ED Disposition - Plan for ED Patient: Disposition: Home or Assisted Living Diagnosis: Anterior epistaxis Instructions: ED Epistaxis (Adult) Referrals: Teresa Castellano DO [Primary Care Provider] - As Needed Justice Dacosta MD [STAFF PHYSICIAN] - As Needed (If you need to see an ENT.) Additional Instructions: On Saturday night use the syringe you were provided with to deflate the balloon and remove the packing. I would recommend placing some Vaseline on the inside of your nose to help healing and hydration. I would also recommend using a humidifier in your room.
[2020-08-21 12:00] VITALS: RESP 20
== END 2020-08-21 12:00 | disposition home or self-care (01) ==
PROVIDERS: Emergency Provider Emergency Medicine; PCP Internal Medicine
DX: R04.0 Epistaxis (principal); I10 Essential (primary) hypertension; M17.10 Unilateral primary osteoarthritis, unspecified knee; E66.9 Obesity, unspecified; Z87.891 Personal history of nicotine dependence
CPT/HCPCS: 30901; 99282

== ENCOUNTER 2020-08-31 15:00 | Emergency (ER) | payer MEDICARE, OTHER, SELFPAY ==
[2020-08-31 15:02] VITALS: BP 117/78; PULSE 102; RESP 17; TEMP 36.7; O2SAT 94; BMI 34.3
--- NOTE | 2020-08-31 15:25 | EKG12_ITS ---
Test Reason : Blood Pressure : / mmHG Vent. Rate : 126 BPM Atrial Rate : 126 BPM P-R Int : 088 ms QRS Dur : 110 ms QT Int : 350 ms P-R-T Axes : 000 -52 046 degrees QTc Int : 506 ms Sinus tachycardia with short UT with occasional Premature ventricular complexes Left axis deviation Poor R- wave Progression Abnormal ECG Confirmed by MONICA STEWARD, EVERARDO ([id number]), marketing editor IESHA CRISOSTOMO ([id number]) on 09/02/2020 11:13:30 AM Referred By: Confirmed By:EVERARDO ANDERSON MD
--- NOTE | 2020-08-31 15:26 | ED.DCSUM_ITS ---
- ER Visit Summary Date of Service: 08/31/20 Chief Complaint: Chest pain and palpitations History of Present Illness: The patient is a 85 M who presents with chest pain and palpitations that began today. Patient states he feels like his heart is racing. Patient states this is intermittent. Patient states that only lasts briefly. Patient states he feels it over his left upper chest. Patient states nothing makes it worse and nothing makes it better. Patient denies any nausea or vomiting. Patient denies any shortness of breath or cough. Patient denies any fevers or chills. Patient denies any lightheadedness or dizziness. Physical Examination: Vital signs are stable. Patient is afebrile. Patient is in no acute distress. Oral mucosa is pink and moist. Neck is supple. Trachea is midline. There is no JVD. Heart was regular rate and rhythm. Lungs are clear and equal bilaterally. Abdomen is soft. Bowel sounds are normal. Cranial nerves II through XII are intact. There are no focal motor or sensory deficits. Extremities are intact. There is no calf tenderness or edema. Test Results: EKG was obtained. On my interpretation, there is a sinus tachycardia with a rate of 126. There are occasional PVC noted. There are no acute ST or T wave changes. After the initial EKG was obtained, the patient was noted to have decreased heart rate and a repeat EKG was obtained. On my interpretation, this showed a normal sinus rhythm with a rate of 90. There are no acute ST or T wave changes. CBC shows a mild leukocytosis of 11.8. Comprehensive metabolic profile showed a mild hypokalemia of 2.9. Troponin was normal. Portable 1 view chest x-ray was obtained. On my interpretation, lung odom are clear. There is normal cardiac silhouette. Bony thorax is normal. There is no acute process noted. Radiologist also interpreted the x-ray and agrees. Emergency Department Course and Treatment: Patient was given a dose of oral potassium here. Patient is feeling better on reevaluation. Patient wanted me to discuss his care with his primary care physician, Dr. Castellano. She has been paged. She recommended obtaining a TSH. This was ordered. She also recommended holding Eliquis. Patient was given a prescription for potassium for the next 5 days. She will follow up with the patient in 5 to 7 days. Patient was instructed return if worse in any way. Patient understood and was agreeable with the plan. All questions were answered. Disposition: Discharge home Impression: 1. Palpitations This note was generated with [employer] dictation software. It may contain incorrect words, spelling, and punctuation that were not noted in review of the chart prior to signing ED Disposition - Plan for ED Patient: Disposition: Home or Assisted Living Diagnosis: Palpitations Instructions: ED Palpitations Prescriptions: Potassium Chloride 10 meq PO BID #10 [email or web address] Prescription Printed Referrals: Teresa Castellano DO [Primary Care Provider] - 5-7 Days
[2020-08-31 15:27] VITALS: BP 137/101; PULSE 125; RESP 22; TEMP 36.9; O2SAT 95
--- NOTE | 2020-08-31 15:48 | EKG12_ITS ---
Test Reason : Blood Pressure : / mmHG Vent. Rate : 090 BPM Atrial Rate : 090 BPM P-R Int : 208 ms QRS Dur : 112 ms QT Int : 360 ms P-R-T Axes : 009 -65 014 degrees QTc Int : 440 ms Normal sinus rhythm Left anterior fascicular block Poor R- wave Progression Abnormal ECG Confirmed by MONICA STEWARD, EVERARDO ([id number]), graphics editor IESHA CRISOSTOMO ([id number]) on 09/02/2020 11:14:03 AM Referred By: Confirmed By:EVERARDO ANDERSON MD
--- NOTE | 2020-08-31 15:50 | RAD_ITS ---
STUDY: X-RAY CHEST REASON FOR EXAM: Male, 85 years old. PALPITATIONS TECHNIQUE: Single AP portable view of the chest. COMPARISON: 06/23/2020 FINDINGS: The lungs are clear and expanded. There is no demonstrated pleural abnormality. Normal size heart. Normal mediastinum and la. Normal visualized pulmonary arteries. There is atherosclerotic tortuosity of the aortic arch and descending thoracic aorta. Normal visualized thoracic spine. Normal visualized ribs, clavicles, and shoulders. There is no demonstrated abnormality of the visualized soft tissue structures of the upper abdomen. RAD/Chest 1 View (Portable) IMPRESSION: No active disease. Electronically Signed: Tomy Lauren MD at 16:17 EST Tel , Service support ,
[2020-08-31 16:01] VITALS: BP 107/81; PULSE 85; RESP 15; O2SAT 95
--- NOTE | 2020-08-31 16:01 | NURSING ---
Patient was taking eliquis 5mg because of covid and was then taken off it due to a nose bleed. Per BARRETT Irby at [facility], patient has no h/o AFib but had called for elevated HR and BP so they told hm to come in here. On tele, he has what appears to be sinus tach but then no p wave and an occasional irreg rhythm. Occasional PVC noted, also. is usually historian for this patient but she is at home because she had a procedure done today and was sedated. No further information obtained from [facility] staff.
[2020-08-31 16:06] LABS: Absolute Lymphocyte Count 2.14 X10^3/uL (0.83-4.51); Absolute Neutrophil Count 8.3 X10^3/uL (2.0-7.7); Basophil# 0.02 X10^3/uL; Basophil% 0.2 % (0-1); Eosinophil# 0.14 X10^3/uL; Eosinophils% 1.2 % (0-5); Hematocrit 40.4 % (40-54); Lymphocyte # 2.14 X10^3/ul (4.0); Lymphocyte % 18.2 % (19-41); Mean Corp Hgb Conc 32.2 g/dL (32-36); Mean Corpuscular Hgb 27.4 pg (27.0-32.0); Mean Corpuscular Volume 85.2 fL (80-94); Mean Platelet Vol. 9.9 fl (6.2-12.0); Monocyte# 1.11 X10^3/uL; Monocyte% 9.4 % (0-10); NRBC Flagged by Analyzer 0 % (0-5); Neutrophil # 8.31 X10^3/uL (2.7-7.7); Neutrophil % 70.6 % (47-70); Platelet Count 320 K/mm3 (150-450); RBC Distribution Width CV 18.6 % (11.6-14.6); RBC Distribution Width SD 58.4 fl (35.1-43.9); Red Blood Count 4.74 M/mm3 (4.6-6.2); White Blood Count 11.8 K/mm3 (4.4-11.0)
[2020-08-31 16:50] LABS: ALB/GLOB Ratio 0.8 RATIO (0.9-2.4); AST(SGOT) 17 U/L (15-37); Alanine Aminotransfer ALT/SGPT 20 U/L (16-61); Albumin, Serum 3.2 g/dL (3.2-5.0); Alkaline Phosphatase 91 U/L (45-117); Anion Gap 10 (5-15); BUN 15 mg/dL (7-18); BUN/Creat Ratio 16.4 RATIO (10-20); Calcium,Total 9.1 mg/dL (8.5-10.1); Chloride 102 mmol/L (98-107); Creatinine, Serum 0.92 mg/dL (0.70-1.30); EST Glomerular Filtration Rate 84 mL/min (>60); Est Glom Filt Rate - Afr Amer 101 mL/min (>60); Estimated Creatinine Clearance 53.94 ml/min; Globulin 4.1 g/dL (2.2-4.2); Glucose 108 mg/dL (74-106); Potassium 2.9 mmol/L (3.5-5.1); Protein, Total 7.3 g/dL (6.4-8.2); Sodium Level 140 mmol/L (136-145)
[2020-08-31 17:38] VITALS: BP 113/69; PULSE 124; RESP 24; O2SAT 98
[2020-08-31 18:58] VITALS: BP 107/92; PULSE 87; RESP 18; O2SAT 97
[2020-08-31 20:44] LABS: Thyroid Stim Hormone (TSH) 1.46 uIU/mL (0.358-3.74)
== END 2020-08-31 18:59 | disposition home or self-care (01) ==
PROVIDERS: Emergency Provider Emergency Medicine; PCP Internal Medicine
DX: R00.2 Palpitations (principal); E87.6 Hypokalemia; K21.9 Gastro-esophageal reflux disease without esophagitis
CPT/HCPCS: 71045; 80053; 84443; 84484; 85025; 93005; 99285; A4216

== ENCOUNTER → 2021-01-05 12:17 | Outpatient (CLI) | payer MEDICARE, OTHER, SELFPAY ==
[2021-01-05 15:01] LABS: Absolute Lymphocyte Count 2.55 X10^3/uL (0.83-4.51); Absolute Neutrophil Count 7.3 X10^3/uL (2.0-7.7); Basophil# 0.03 X10^3/uL; Basophil% 0.3 % (0-1); Eosinophils% 2.6 % (0-5); Hematocrit 38.7 % (40-54); Hemoglobin 12.1 g/dL (13.0-16.5); Lymphocyte # 2.55 X10^3/ul (0.83-4.51); Lymphocyte % 22.1 % (19-41); Mean Corp Hgb Conc 31.3 g/dL (32-36); Mean Corpuscular Hgb 26.8 pg (27.0-32.0); Mean Corpuscular Volume 85.8 fL (80-94); Mean Platelet Vol. 10.7 fl (6.2-12.0); Monocyte# 1.32 X10^3/uL; Monocyte% 11.5 % (0-10); NRBC Flagged by Analyzer 0 % (0-5); Neutrophil # 7.27 X10^3/uL (2.7-7.7); Neutrophil % 63.1 % (47-70); Platelet Count 343 K/mm3 (150-450); RBC Distribution Width CV 17.9 % (11.6-14.6); RBC Distribution Width SD 56.5 fl (35.1-43.9); Red Blood Count 4.51 M/mm3 (4.6-6.2); White Blood Count 11.5 K/mm3 (4.4-11.0)
[2021-01-05 15:35] LABS: ALB/GLOB Ratio 0.8 RATIO (0.9-2.4); AST(SGOT) 21 U/L (15-37); Alanine Aminotransfer ALT/SGPT 22 U/L (16-61); Albumin, Serum 3.2 g/dL (3.2-5.0); Alkaline Phosphatase 95 U/L (45-117); Anion Gap 7 (5-15); BUN 14 mg/dL (7-18); Calcium,Total 8.7 mg/dL (8.5-10.1); Chloride 103 mmol/L (98-107); Creatinine, Serum 0.93 mg/dL (0.70-1.30); EST Glomerular Filtration Rate 82 mL/min (>60); Est Glom Filt Rate - Afr Amer 99 mL/min (>60); Globulin 3.8 g/dL (2.2-4.2); Glucose 88 mg/dL (74-106); PSA,Total- Diagnostic 8.38 ng/mL (0.0-4.0); Potassium 3.6 mmol/L (3.5-5.1); Sodium Level 140 mmol/L (136-145)
[2021-01-05 15:43] LABS: D-Dimer Quantitative (DVT/PE) 0.51 FEU/ug/m (0.27-0.49)
== END ==
PROVIDERS: PCP Internal Medicine; Referring Provider Dermatology Pediatric Dermatology; Visit Provider Dermatology Pediatric Dermatology
DX: D69.2 Other nonthrombocytopenic purpura (principal)
CPT/HCPCS: 36415; 80053; 84153; 85025; 85379

== ENCOUNTER → 2022-10-04 | Outpatient (CLI) | payer MEDICARE, OTHER, SELFPAY ==
--- NOTE | 2022-10-04 10:00 | CDU_ITS ---
Reason For Study: Carotid Stenosis Rt. Velocities/BP Lt. Velocities/BP Prox CCA 61.4/15.2 cm/sec. Prox CCA 51.5/11.6 cm/sec. Mid CCA 41.5/12.3 cm/sec. Mid CCA 64.3/18.0 cm/sec. Dist CCA 52.2/13.7 cm/sec. Dist CCA 56.4/15.9 cm/sec. Prox ICA 46.5/10.2 cm/sec. Prox ICA 32.8/12.7 cm/sec. Mid ICA 55.0/17.3 cm/sec. Mid ICA 49.1/19.5 cm/sec. Dist ICA 47.9/16.6 cm/sec. Dist ICA 55.2/16.8 cm/sec. Rt. ICA/CCA = 1.3. Lt. ICA/CCA = 0.8. Prox ECA 76.2/12.4 cm/sec. Prox ECA 70.0/10.9 cm/sec. Rt. Vert. 26.2/6.4 cm/sec. Lt. Vert. 16.8/4.5 cm/sec. Right Extracranial There is intimal thickening but no significant atherosclerotic plaque noted in the right common carotid artery. There is heterogeneous, irregular atherosclerotic plaque noted in the right internal carotid artery. There is homogeneous, smooth atherosclerotic plaque noted in the right external carotid artery. Antegrade flow is noted in the right vertebral artery. Left Extracranial There is intimal thickening but no significant atherosclerotic plaque noted in the left common carotid artery. There is homogeneous, smooth atherosclerotic plaque noted in the left internal carotid artery. There is intimal thickening but no significant atherosclerotic plaque noted in the left external carotid artery. Antegrade flow is noted in the left vertebral artery. Procedure Carotid Duplex 51232. This is a Carotid Duplex examination using B-mode, color flow and specral Doppler. The exam was diagnostic. Exam performed in department. VL/Carotid Duplex Ultrasound Interpretation Summary Mild (<50%) stenosis right extracranial internal carotid. Mild (<50%) stenosis left extracranial internal carotid. Patent and antegrade vertebrals bilaterally. Ordering Physician: Teresa Castellano Referring Physician: Teresa Castellano M.D. Performed By: Waqas Roger RVT
== END | disposition home or self-care (01) ==
LOC: CVS 09:55
PROVIDERS: PCP Internal Medicine; Visit Provider Internal Medicine
DX: I65.23 Occlusion and stenosis of bilateral carotid arteries (principal)
CPT/HCPCS: 93880

== ENCOUNTER → 2022-11-14 | Outpatient (CLI) | payer MEDICARE, OTHER, SELFPAY ==
--- NOTE | 2022-11-14 11:10 | ART_ITS ---
Reason For Study: PVD Left Segmental Pressures Left brachial= 106mmHg. Left posterior tibial artery = >255mmHg. Left dorsalis pedis artery = 107mmHg. The left posterior tibial artery waveforms are triphasic. The left dorsalis pedis waveforms are triphasic. Right Segmental Pressures Right brachial= 104mmHg. Right posterior tibial artery = >255mmHg. Right dorsalis pedis artery = 157mmHg. The right posterior tibial artery waveforms are triphasic. The right dorsalis pedis waveforms are triphasic. Indices The right resting ankle brachial index is 1.48. The right ankle brachial index by the posterior tibial artery is -NC-. The right ankle brachial index by the dorsalis pedis is 1.48. The left resting ankle brachial index is 1.01. The left ankle brachial index by the posterior tibial artery is -NC-. The left ankle brachial index by the dorsalis pedis is 1.01. VL/Ankle Brachial Index Interpretation Summary Right RUSSELL 1.48, normal. Doppler/PVR waveforms of the right leg normal at rest. Left RUSSELL 1.01, normal. Doppler/PVR waveforms of the left leg normal at rest. Ordering Physician: Jose Verduzco Referring Physician: JOSE VERDUZCO MD Performed By: Gissell Laurent RVT, RDCS
== END | disposition home or self-care (01) ==
LOC: CVS 11:04
PROVIDERS: PCP Internal Medicine; Referring Provider Internal Medicine; Visit Provider Internal Medicine
DX: I73.9 Peripheral vascular disease, unspecified (principal)
CPT/HCPCS: 93922

== ENCOUNTER 2022-12-04 17:00 | Emergency (ER) | payer MEDICARE, OTHER, SELFPAY ==
[2022-12-04 17:01] VITALS: BP 123/81; PULSE 93; RESP 16; TEMP 36.3; O2SAT 95; BMI 32.8
[2022-12-04 18:23] VITALS: BP 134/69; PULSE 72; RESP 15; O2SAT 98
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
== END 2022-12-04 18:26 | disposition home or self-care (01) ==
LOC: ED 18:24
PROVIDERS: Emergency Provider Student in an Organized Health Care Education/Training Program; PCP Internal Medicine; Visit Provider Student in an Organized Health Care Education/Training Program
DX: Z04.1 Encounter for examination and observation following transport accident (principal); I11.9 Hypertensive heart disease without heart failure; Z87.891 Personal history of nicotine dependence
CPT/HCPCS: 99282

== ENCOUNTER → 2023-07-15 | Outpatient (CLI) | payer MEDICARE, OTHER, SELFPAY ==
[2023-07-15 13:14] LABS: PSA,Total- Diagnostic 9.61 ng/mL (0.0-4.0)
== END | disposition home or self-care (01) ==
LOC: LAB 11:48
PROVIDERS: PCP Internal Medicine; Referring Provider Urology; Visit Provider Urology
DX: R97.20 Elevated prostate specific antigen [PSA] (principal)
CPT/HCPCS: 36415; 84153

== ENCOUNTER → 2024-01-16 | Outpatient (CLI) | payer MEDICARE, OTHER, SELFPAY ==
--- NOTE | 2024-01-16 14:36 | VDLE_ITS ---
Reason For Study: BLE SWELLING RIGHT LEFT GSV is normal. GSV is normal. CFV is compressible, spontaneous, phasic, CFV is compressible, spontaneous, phasic, competent and demonstrates normal competent, and demonstrates normal augmentation. augmentation. FV is compressible, spontaneous, phasic, FV is compressible, spontaneous, phasic, competent and demonstrates normal competent and demonstrates normal augmentation. augmentation. POP V is compressible, spontaneous, phasic, POP V is compressible, spontaneous, phasic, competent and demonstrates normal competent and demonstrates normal augmentation. augmentation. T/P Trunk is compressible. T/P Trunk is compressible. PTV is compressible. PTV is compressible. RT PerV is compressible. LT PerV is compressible. Procedure This is a venous duplex using B-mode, color flow and spectral Doppler. Exam performed in department. A preliminary report was called and/or faxed to Dr. Mitchell@ [phone] @ 3:20 pm. VL/Venous Duplex US - Renato Extrem Interpretation Summary Deep veins of the lower extremities are bilaterally patent and compressible seg mentally. There is no evidence of deep vein thrombosis on either side. Valvular competence appears in tact within the proximal deep venous systems bilaterally. The great saphenous veins appear bila terally patent and compressible segmentally. Ordering Physician: Damian Mitchell Referring Physician: Teresa Castellano Performed By: Gissell Laurent, RDCS, RVT
== END | disposition home or self-care (01) ==
LOC: CVS 14:27
PROVIDERS: PCP Internal Medicine; Referring Provider Podiatrist; Visit Provider Podiatrist
DX: M79.604 Pain in right leg (principal); M79.605 Pain in left leg; R22.41 Localized swelling, mass and lump, right lower limb; R22.42 Localized swelling, mass and lump, left lower limb
CPT/HCPCS: 93970

== ENCOUNTER → 2025-06-16 | Outpatient (CLI) | payer MEDICARE, OTHER, SELFPAY ==
--- NOTE | 2025-06-16 12:43 | RAD_ITS ---
PROCEDURE: CHEST PA AND LATERAL 06/16/2025 REASON FOR EXAM: COUGH TECHNIQUE: Procedure Code: RADCXR Modality: DX Procedure: CHEST PA AND LATERAL COMPARISON: None. FINDINGS: Hardware: None. Heart: No cardiomegaly. Mediastinum: Unremarkable. Lungs: Perihilar and lower lungs airspace opacities consistent with pulmonary edema or pneumonia. No pleural effusion or pneumothorax. Bones: No acute bony abnormalities. RAD/Chest PA and Lateral IMPRESSION: Perihilar and lower lungs airspace opacities consistent with pulmonary edema or pneumonia. Reading Location: [id number]
== END | disposition home or self-care (01) ==
PROVIDERS: PCP Internal Medicine; Referring Provider Physician Assistant; Visit Provider Physician Assistant
DX: R05.9 Cough, unspecified (principal)
CPT/HCPCS: 71046